=== PATIENT | female | born 1975 | race Caucasian/White ===

== ENCOUNTER → 2018-04-20 | Outpatient (CLI) | payer OTHER ==
--- NOTE | 2018-04-20 16:42 | US ---
EXAMINATION TYPE: US abdomen complete DATE OF EXAM: 04/20/2018 COMPARISON: NONE CLINICAL HISTORY: Z82.49 FAM HX ISCHEMIC HEART DZ,Z13.6 SCREEN FOR CARDIOVASCU. Mother had AAA. EXAM MEASUREMENTS: Liver Length: 14.3 Gallbladder Wall: 0.2m CBD: 0.4m Spleen: 9.1m Right Kidney: 9.5 x 47 x 4.2cm Left Kidney: 10.3 x 5.7 x 5.0cm Pancreas: hyperechoic Liver: fatty liver as is hyperechoic to right renal cortex Gallbladder: wnl Evidence for sonographic Rose's sign: no CBD: wnl Spleen: wnl Right Kidney: mid pole shadowing calcification noted = 0.8 x 0.8 x 0.7cm Left Kidney: mid pole shadowing calcification noted = 0.6 x 1.0 x 0.6cm Upper IVC: wnl Abd Aorta: wnl IMPRESSION: 1. Shadowing nonobstructing renal stones present bilaterally. 2. Mild fatty infiltration of the liver.
== END ==
LOC: RADUSWWP 08:40
PROVIDERS: ATTEND Family Medicine
DX: N20.0 Calculus of kidney (principal); K76.0 Fatty (change of) liver, not elsewhere classified; Z13.6 Encounter for screening for cardiovascular disorders
CPT/HCPCS: 76700

== ENCOUNTER → 2018-04-30 | Outpatient (CLI) | payer OTHER ==
--- NOTE | 2018-05-01 12:11 | ECHOF ---
Referral Reason:I10 essential hyptertension; z82.49 MEASUREMENTS -------- HEIGHT: 152.4 cm WEIGHT: 90.7 kg BP: RVIDd: 3.4 cm (< 3.3) IVSd: 1.1 cm (0.6 - 1.1) LVIDd: 3.5 cm (3.9 - 5.3) LVPWd: 1.1 cm (0.6 - 1.1) IVSs: 1.4 cm LVIDs: 2.6 cm LVPWs: 1.4 cm LAESV Index (A-L): 19.44 ml/m Ao Diam: 2.6 cm (2.0 - 3.7) AV Cusp: 1.6 cm (1.5 - 2.6) LA Diam: 2.8 cm (2.7 - 3.8) MV E Fredy: 1.01 m/s MV DecT: 227 ms MV A Fredy: 0.74 m/s MV E/A Ratio: 1.36 RAP: 5.00 mmHg RVSP: 31.07 mmHg FINDINGS -------- Sinus rhythm. This was a technically adequate study. The left ventricular size is normal. There is borderline concentric left ventricular hypertrophy. Overall left ventricular systolic function is normal with, an EF between 55 - 60 %. The right ventricle is normal in size and function. Normal LA size by volume 22+/-6 ml/m2. The right atrium is normal in size. The aortic valve is trileaflet, and appears structurally normal. No aortic stenosis or regurgitation. The mitral valve leaflets are mildly thickened. There is trace to mild mitral regurgitation. Mild tricuspid regurgitation present. Right ventricular systolic pressure is normal at < 35 mmHg. There is no evidence of pulmonary hypertension. Trace/mild (physiologic) pulmonic regurgitation. The aortic root size is normal. Normal inferior vena cava with normal inspiratory collapse consistent with estimated right atrial pre ssure of 5 mmHg. There is no pericardial effusion. CONCLUSIONS -------- 1. Sinus rhythm. 2. This was a technically adequate study. 3. The left ventricular size is normal. 4. There is borderline concentric left ventricular hypertrophy. 5. Overall left ventricular systolic function is normal with, an EF between 55 - 60 %. 6. Normal LA size by volume 22+/-6 ml/m2. 7. The aortic valve is trileaflet, and appears structurally normal. No aortic stenosis or regurgitati on. 8. The mitral valve leaflets are mildly thickened. 9. There is trace to mild mitral regurgitation. 10. Mild tricuspid regurgitation present. 11. Right ventricular systolic pressure is normal at < 35 mmHg. 12. There is no evidence of pulmonary hypertension. 13. Trace/mild (physiologic) pulmonic regurgitation. 14. The aortic root size is normal. 15. There is no pericardial effusion. MACHINE SAND MIXER: Eduar Mahmood RDCS
== END | disposition home or self-care (01) ==
LOC: RADECHMAIN 15:00
PROVIDERS: ATTEND Family Medicine
DX: I08.1 Rheumatic disorders of both mitral and tricuspid valves (principal); I11.9 Hypertensive heart disease without heart failure; Z82.49 Family history of ischemic heart disease and other diseases of the circulatory system
CPT/HCPCS: 93306

== ENCOUNTER → 2018-05-03 | Outpatient (CLI) | payer OTHER ==
--- NOTE | 2018-05-03 23:41 | CONS ---
CONSULTATION DATE OF SERVICE: 05/03/2018 42-year-old lady has been evaluated in [facility] for possible obstructive sleep apnea-hypopnea syndrome. HISTORY OF PRESENT ILLNESS/SLEEP-WAKE EVALUATION: Patient referred her symptoms for about 1 year. SLEEP SCHEDULE: Her sleep schedule on working days from around 10:30 to 11:00 p.m. until 630 to 7:15 am and on weekends until around 8:00 a.m. FALLING ASLEEP: Sometimes she has problem with falling asleep for more than 30 minutes, but usually not more than 1 hour. She has TV set in bedroom. DURING SLEEP: Sleeps on the side position with her with occasionally very loud snoring. The patient remembers awakening from sleep with choking and gasping for air. She wakes up from sleep up to 5 times with nocturia. DURING THE DAY/SLEEP WAKE EVALUATION: The patient feels sleepy during the day. Klemme Sleepiness Scale significantly increased to 12. Usually she does not have time to take naps. No history of hypnagogic hallucinations, sleep paralysis or cataplexy. PAST MEDICAL HISTORY: Positive for hypertension, acid reflux, headaches, asthma. PAST SURGICAL HISTORY: Tonsillectomy. MEDICATIONS: Omeprazole, lisinopril, vitamin D supplement. SOCIAL HISTORY: Negative for smoking. Alcohol consumption occasional. FAMILY HISTORY: Hypertension, hyperlipidemia, stroke, fibromyalgia, asthma, sinus headaches, bronchitis, lung problems, emphysema, headaches, insomnia, acid reflux, diabetes. REVIEW OF SYSTEMS: Multiple awakenings from sleep, sleepiness during the day. PHYSICAL EXAM: lady without distress. BP 152/77, HR 73, HR 16, height 5 feet 3 inches. weight 207.6, body mass index 39.4, temperature 98.0, oxygen saturation room air 99%. Oropharynx practically normal position of the soft palate. Nose: Restriction of nasal breathing bilaterally. ABDOMEN: Obese. Neck 16 inches in circumference. Neck Supple, no JVD. Thyroid is not palpable. LUNGS: Clear to percussion and to auscultation. Good air exchange. No wheezing or rhonchi. HEART S1, S2 regular. No murmurs, gallops, or rubs. ABDOMEN: Obese. Soft and nontender. Bowel sounds are present. No organomegaly appreciated. EXTREMITIES: 1+ bilateral ankle edema. 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 Cranial nerves 2 to 7 intact. There is no fasciculation or atrophy. noted. No focal deficits observed. IMPRESSION: 1. Snoring, episodes of awakening from sleep with gasping and choking, multiple awakenings with nocturia, restriction of nasal breathing, wide neck 16 inches in circumference, excessive sleepiness. Klemme Sleepiness Scale increased to 12. Possible obstructive sleep apnea-hypopnea syndrome. Obstructive sleep apnea- hypopnea syndrome. 2. Obesity, body mass index 39.4. 3. Hypertension. 4. Acid reflux. 5. Status post tonsillectomy. 6. History of asthma. 7. Headaches and status post tonsillectomy. PLAN: 1. Polysomnography for evaluation of patient's breathing during sleep. 2. CPAP/BiPAP titration if sleep study confirms obstructive sleep apnea-hypopnea syndrome. 3. Preferable position during sleep on the side. 4. No driving if patient feels any sleepiness. 5. I will see patient for follow up visit to explain results of testing and following plan. Thank you very much for referring this patient for consultation. Sincerely, Luis Alfredo Yao MD, PhD, FAASM Diplomat of [employer] Building Insulation Supervisor of [facility] MMODL / IJN: [id number] /
== END | disposition home or self-care (01) ==
LOC: SLEEP 16:32
PROVIDERS: ATTEND Internal Medicine
DX: R06.83 Snoring (principal); G47.10 Hypersomnia, unspecified; R35.1 Nocturia; E66.9 Obesity, unspecified; I10 Essential (primary) hypertension; K21.9 Gastro-esophageal reflux disease without esophagitis; R51 Headache; Z68.39 Body mass index [BMI] 39.0-39.9, adult; Z87.09 Personal history of other diseases of the respiratory system; Z90.09 Acquired absence of other part of head and neck; Z79.899 Other long term (current) drug therapy
CPT/HCPCS: 99211

== ENCOUNTER → 2018-08-01 | Outpatient (CLI) | payer OTHER ==
[2018-08-01 17:37] LABS: Basophils # (A) 0.1 k/uL (0-0.2); Basophils % (A) 1 %; Eosinophils # (A) 0.3 k/uL (0-0.7); Eosinophils % (A) 4 %; HCT 37.5 % (34.0-46.0); HGB 12.5 gm/dL (11.4-16.0); Lymphocytes # (A) 2.8 k/uL (1.0-4.8); Lymphocytes % (A) 32 %; MCH 28.3 pg (25.0-35.0); MCHC 33.3 g/dL (31.0-37.0); MCV 84.9 fL (80.0-100.0); Mean Platelet Volume 7.5; Monocytes # (A) 0.4 k/uL (0-1.0); Monocytes % (A) 4 %; Neutrophils % (A) 57 %; Platelet Count 306 k/uL (150-450); RBC 4.42 m/uL (3.80-5.40); RDW 13.5 % (11.5-15.5); WBC 8.8 k/uL (3.8-10.6)
== END | disposition home or self-care (01) ==
LOC: LABPAT 16:47
PROVIDERS: ATTEND Obstetrics & Gynecology
DX: Z01.818 Encounter for other preprocedural examination (principal); I10 Essential (primary) hypertension; N94.6 Dysmenorrhea, unspecified; N92.0 Excessive and frequent menstruation with regular cycle; Z01.812 Encounter for preprocedural laboratory examination
CPT/HCPCS: 36415; 85025; 93005

== ENCOUNTER 2018-08-07 07:04 | Day surgery (SDC) | payer OTHER ==
[2018-08-03 15:31] VITALS: BMI 38.7
--- NOTE | 2018-08-06 15:08 | HP ---
HISTORY AND PHYSICAL Surgery is tomorrow, August 07, 2018 at [facility]. This is a 43-year-old white female, 3, para 0-3-0-3, who presents with very heavy menses, painful menses with the passage of golf ball size clots. She is using [id number] nonsteroidal pain medication for some relief. After consultation, she is electing to proceed with hysteroscopy, and NovaSure endometrial ablation. Office endometrial sampling has been performed and was within normal limits. Uterus sounds to a depth of 10 cm, please see below. REVIEW OF SYMPTOMS: Otherwise negative. PAST MEDICAL HISTORY: Significant for asthma, HPV, hypertension, hypothyroidism, pituitary tumor, prediabetes, and vitamins D and B12 deficiencies. PAST SURGICAL HISTORY: Tonsillectomy, cryotherapy of the cervix in 1995. CURRENT MEDICATIONS: 1. Lisinopril 10 mg daily. 2. Nature Thyroid 32.5 mg 2 tabs in the morning and 1 in the afternoon. 3. Prilosec 10 mg as needed. ALLERGIES: None known. FAMILY HISTORY: Significant for hypertension and stroke, oral cancer, aneurysm, fibromyalgia, bladder cancer, GERD, COPD, and chronic regional pain syndrome. PAST OBSTETRIC HISTORY: Significant for normal spontaneous vaginal deliveries x3, all , 4 to 7 weeks early. SOCIAL HISTORY: Patient currently never tobacco social alcohol daily. PHYSICAL EXAM: This is a pleasant white female, 5 foot 0.25 inch, 205 pounds, BMI 40, blood pressure 120/80. HEENT exam reveals no obvious thyromegaly, no lymphadenopathy. Good dentition. Chest is clear to auscultation in all farley anteriorly and posteriorly. Cardiac exam reveals regular rate and rhythm with no murmur, click, or rub. Breasts are bilaterally symmetric to inspection, no masses or lymph nodes, no nipple deviation or discharge, no unusual tenderness or lesions to palpation. Abdomen is moderately obese, no organosplenomegaly, active bowel sounds. External genitalia is well estrogenized and age-appropriate, cervix is multiparous, uterus is small, anteverted, anteflexed, mobile and nontender, adnexa are negative bilaterally. Rectal exam reveals good sphincter tone, no hemorrhoids or masses. No obvious lymphadenopathy. Skin exam is negative to inspection. IMPRESSION: Dysmenorrhea and menorrhagia, with recent endometrial biopsy sampling within normal limits. Patient requesting hysteroscopy and NovaSure ablation. PLAN: We will proceed with hysteroscopy and NovaSure endometrial ablation at [facility]. The risks, benefits, and alternatives have all been discussed. The risks of surgery, infection, bleeding, dysmenorrhea postoperatively have all been discussed. The pamphlet on this procedure have been given to the patient and reviewed. All questions addressed. MMODL / IJN: [id number] /
[~2018-08-07 07:04] MED LIST: DEXAMETHASONE SOD PHOSPHATE 10 MG/ML 1 ML VIAL IV ONE; HYDROmorphone 0.5 MG/0.5 ML SYRINGE IVP PRN; LIDOCAINE 1% 20 ML VIAL (10MG/ML) FOR IV START INTRADERMA PRN; MIDAZOLAM (PF) 2 MG/2 ML VIAL IV PRN; ONDANSETRON 4 MG/2 ML VIAL IVP ONE; Pre Op ABX Message 1 EACH MISC MISCELLANE ONE; SCOPOLAMINE 1.5MG/72HR PATCH TRANSDERM ONE
[2018-08-07 07:44] VITALS: RESP 16
[2018-08-07] MEDS: LACTATED RINGERS 1,000 ML IV SCH ×2 (07:51→08:21)
[2018-08-07] MEDS ORDERED: fentaNYL (PF) 50 MCG/ML 2 ML AMP ONE (08:22)
[2018-08-07] MEDS ORDERED: PROPOFOL 10 MG/ML 20 ML VIAL IV ONE (08:22)
[2018-08-07] MEDS ORDERED: KETOROLAC 30 MG/ML 1 ML VIAL ONE (08:22)
[2018-08-07] MEDS ORDERED: LIDOCAINE 1% INJ 10MG/ML (20 ML MDV) ONE (08:22)
[2018-08-07] MEDS ORDERED: SUCCINYLCHOLINE CHLORIDE 100 MG/5 ML SYR IV ONE (08:22)
[2018-08-07] MEDS ORDERED: MIDAZOLAM 2 MG/2 ML VIAL ONE (08:22)
--- NOTE | 2018-08-07 08:47 | P.OP ---
Date of Procedure: 08/07/18 Preoperative Diagnosis: Menorrhagia, dysmenorrhea Postoperative Diagnosis: Same, normal-appearing endometrial cavity Procedure(s) Performed: Hysteroscopy, NovaSure endometrial ablation Anesthesia: ELENAA Surgeon: Jaz Trujillo Estimated Blood Loss (ml): 10 IV fluids (ml): 500 Urine output (ml): 100 Pathology: none sent Condition: stable Disposition: PACU Operative Findings: Essentially normal-appearing endometrial cavity Description of Procedure: Patient is brought to the operating suite and a general anesthetic is administered without difficulty. Urine hCG is negative. The appropriate timeout is performed to assure proper patient and procedural identification. The cervix, vagina, perineal bodies are all prepped and draped in the usual sterile fashion, the patient in dorsal lithotomy position. The bladder is drained for approximately 100 mL of clear yellow urine. Examination under anesthesia reveals a small anteverted anteflex uterus, negative adnexa bilaterally. Weighted speculum was placed into the vagina. The anterior lip of the cervix is grasped with a double-tooth tenaculum. Uterus sounds to a depth of 10.5 cm in the anteverted position. The cervix is gently and systematically dilated using Hanks dilators. Hysteroscope was placed and the cavity is distended with sterile saline. Inspection of the cavity reveals a fair amount of proliferative -type appearing tissue, no obvious polyps fibroids or defects. Hysteroscope was removed. NovaSure wand is then placed and seated properly. The uterine length of 6.5 cm, width of 4.5 cm is calibrated onto the machine. The machine is enabled. For 33 seconds and a power 161 W the procedure is carried out. When the machine shuts off the wand is reduced and removed. Hysteroscope was then reintroduced and the cavity appears to be uniformly blanched. All sponge needle and enhancement counts are correct at the end of the procedure. Toradol is given prior to leaving the operative suite. Patient is brought back to recovery room in very good condition with stable vital signs including blood pressure 118/69, pulse 70, 98% O2 saturation. Patient will follow-up with me in the office in 2 weeks.
[2018-08-07 09:01] VITALS: TEMP 99.2
[2018-08-07 10:29] VITALS: BP 136/89; PULSE 89
== END 2018-08-07 10:47 | disposition home or self-care (01) ==
LOC: OR 07:04
PROVIDERS: ATTEND Obstetrics & Gynecology
DX: N94.6 Dysmenorrhea, unspecified (principal); N92.0 Excessive and frequent menstruation with regular cycle; Z80.52 Family history of malignant neoplasm of bladder; Z80.8 Family history of malignant neoplasm of other organs or systems; J45.909 Unspecified asthma, uncomplicated; K21.9 Gastro-esophageal reflux disease without esophagitis; I10 Essential (primary) hypertension; E03.9 Hypothyroidism, unspecified; R73.03 Prediabetes; E55.9 Vitamin D deficiency, unspecified; E53.8 Deficiency of other specified B group vitamins; Z79.890 Hormone replacement therapy; Z79.899 Other long term (current) drug therapy
CPT/HCPCS: 81025; 58563; J2250; J1100; J2405; J2001; J3010; J1885; J0330; J2704

== ENCOUNTER → 2019-08-05 | Outpatient (CLI) | payer OTHER ==
--- NOTE | 2019-08-05 08:31 | MM ---
Reason for exam: screening (asymptomatic). Baseline mammogram. History: Took hormonal contraceptives for 7 years beginning at age 17. Physical Findings: Nurse did not find any significant physical abnormalities on exam. MG Screening Mammo w CAD Bilateral CC and MLO view(s) were taken. The breast tissue is heterogeneously dense. This may lower the sensitivity of mammography. No suspicious abnormality. Left intramammary lymph node noted. These results were verbally communicated with the patient and result sheet given to the patient on 08/05/19. ASSESSMENT: Benign, BI-RAD 2 RECOMMENDATION: Routine screening mammogram of both breasts in 1 year.
== END | disposition home or self-care (01) ==
LOC: RADMAMWWP 06:52
PROVIDERS: ATTEND Family Medicine
DX: Z12.31 Encounter for screening mammogram for malignant neoplasm of breast (principal)
CPT/HCPCS: 77067

== ENCOUNTER 2022-05-17 18:19 | Emergency (ER) | payer BC, OTHER ==
[2022-05-17 19:12] VITALS: BP 165/87; PULSE 82; RESP 20; TEMP 98
--- NOTE | 2022-05-17 19:59 | XR ---
EXAMINATION TYPE: XR chest 2V DATE OF EXAM: 05/17/2022 COMPARISON: NONE HISTORY: Bronchitis. Cough TECHNIQUE: FINDINGS: Heart and mediastinum are normal. Lungs are clear. Diaphragm is normal. Bony thorax appears normal. IMPRESSION: Normal chest
[2022-05-17] MEDS ORDERED: methylPREDNISolone SOD SUCCI 125 MG/2 ML VIAL IM ONE (20:14)
--- NOTE | 2022-05-17 20:17 | ED ---
URI HPI - General Chief Complaint: Upper Respiratory Infection Stated Complaint: cough, congestion Time Seen by Provider: 05/17/22 19:21 Source: patient Mode of arrival: ambulatory Limitations: no limitations - History of Present Illness Initial Comments: Patient is a 46-year-old female presenting with chief complaint of cough. Patient states that she has had a cough for the last 5 weeks. Patient has been treated with steroids, azithromycin, doxycycline. Patient states that at times cough has slightly improved, however it tends to return within a few days. She states that it is productive. She states that it is keeping her up at night. No fever or chills. No nausea or vomiting. No abdominal pain, chest pain, difficulty breathing. No sore throat , palpitations, weakness. - Related Data Home Medications Medication Instructions Recorded Confirmed Ergocalciferol (Vitamin D2) 50,000 unit PO IRIZARRY 08/03/18 08/07/18 [Vitamin D2] Omeprazole [PriLOSEC] 20 mg PO DAILY 08/03/18 08/07/18 lisinopriL [Zestril] 10 mg PO DAILY 08/03/18 08/07/18 Previous Rx's Medication Instructions Recorded Albuterol Sulfate [Albuterol 2 puff PO Q6H PRN #8.5 gm 05/17/22 Sulfate Hfa] Amoxic-Pot Clav 875-125Mg 1 tab PO Q12HR 7 Days #14 tab 05/17/22 [Augmentin 875-125] methylPREDNISolone Dose Pack 4 mg PO DIRECTED #1 packet 05/17/22 [Medrol Dose Pack] Allergies Allergy/AdvReac Type Severity Reaction Status Date / Time No Known Allergies Allergy Verified 05/17/22 19:12 Review of Systems ROS Statement: Those systems with pertinent positive or pertinent negative responses have been documented in the HPI. ROS Other: All systems not noted in ROS Statement are negative. Past Medical History Past Medical History: Asthma History of Any Multi-Drug Resistant Organisms: None Reported Past Surgical History: Tonsillectomy, Uterine Ablation Past Psychological History: No Psychological Hx Reported Smoking Status: Never smoker Past Alcohol Use History: Occasional Past Drug Use History: None Reported General Exam Limitations: no limitations General appearance: alert, in no apparent distress Head exam: Present: atraumatic, normocephalic, normal inspection Eye exam: Present: normal appearance, PERRL, EOMI. Absent: scleral icterus, conjunctival injection, periorbital swelling ENT exam: Present: normal exam, normal oropharynx, mucous membranes moist Neck exam: Present: normal inspection, full ROM Respiratory exam: Present: wheezes. Absent: respiratory distress, rales, rhonchi, stridor Cardiovascular Exam: Present: regular rate, normal rhythm, normal heart sounds. Absent: systolic murmur, diastolic murmur, rubs, gallop, clicks Neurological exam: Present: alert, oriented X3, CN II-XII intact Psychiatric exam: Present: normal affect, normal mood Skin exam: Present: warm, dry, intact, normal color. Absent: rash Course Vital Signs 05/17/22 19:09 Temperature 98 F Pulse Rate 82 Respiratory 20 Rate Blood Pressure 165/87 O2 Sat by Pulse 97 Oximetry Medical Decision Making - Medical Decision Making Patient is a 46-year-old female presenting with chief complaint of cough been ongoing for the last 5 weeks. Admits to congestion. Patient states that is pr oductive in nature. No chest pain or difficulty breathing. On examination there are mild diffuse wheezes heard on auscultation. Patient tested positive for Covid, however patient has had the same symptoms for the last 5 weeks and cannot be sure when she contracted Covid. Chest x-ray is negative for any acute process. Patient will be treated with Solu-Medrol shot here in the ER, she is prescribed albuterol inhaler, Medrol Dosepak, and Augmentin, as it seems her cough is being provoked by nasal drainage, could be due to sinusitis.. Follow-up with PCP. Report back to ER with any new or worsening symptoms. Discussed return parameters and answered all questions. Patient conveyed verbal understanding and agreed to the plan. I discussed this case in detail with my attending Dr. Escobedo - Lab Data Lab Results 05/17/22 05/17/22 Range/Units 19:18 19:18 Coronavirus (PCR) Detected A (Not Detectd) Influenza Type A RNA Not Detected (Not Detectd) Influenza Type B (PCR) Not Detected (Not Detectd) Disposition Clinical Impression: Upper respiratory tract infection, COVID Disposition: HOME SELF-CARE Condition: Good Instructions (If sedation given, give patient instructions): Upper Respiratory Infection (ED), COVID-19 (Coronavirus Disease 2019) (ED) Additional Instructions: Follow-up with PCP. Report back to ER with any new or worsening symptoms. Take medication as prescribed. Wear mask at all times until symptoms resolve. Prescriptions: Albuterol Sulfate [Albuterol Sulfate Hfa] 2 puff PO Q6H PRN #8.5 gm PRN Reason: Cough Amoxic-Pot Clav 875-125Mg [Augmentin 875-125] 1 tab PO Q12HR 7 Days #14 tab methylPREDNISolone Dose Pack [Medrol Dose Pack] 4 mg PO DIRECTED #1 packet Is patient prescribed a controlled substance at d/c from ED?: No Referrals: Shelley Guzman III, MD [Primary Care Provider] - 1-2 days Time of Disposition: 20:16
== END 2022-05-17 21:19 | disposition home or self-care (01) ==
LOC: EC 18:19
DX: U07.1 COVID-19 (principal); J45.909 Unspecified asthma, uncomplicated; Z79.51 Long term (current) use of inhaled steroids; Z79.899 Other long term (current) drug therapy
CPT/HCPCS: 87502; 87635; 71046; 99283; 96372; J2930

== ENCOUNTER 2022-05-25 04:49 | Observation (INO) | payer BC ==
[2022-05-25] MEDS ORDERED: SODIUM CHLORIDE 0.9% 1,000 ML IV STA (05:17)
[2022-05-25] MEDS ORDERED: ONDANSETRON 4 MG/2 ML VIAL IVP STA (05:17)
[2022-05-25] MEDS ORDERED: PANTOPRAZOLE 40 MG/10 ML VIAL IVP STA (05:17)
[2022-05-25] MEDS ORDERED: KETOROLAC 15 MG/ML 1 ML VIAL IVP STA (05:26)
--- NOTE | 2022-05-25 05:37 | ED ---
General Adult HPI <Kwame Camara - Last Filed: 05/25/22 08:26> - General Source: patient Mode of arrival: wheelchair Limitations: no limitations <Bianca Crowley - Last Filed: 05/26/22 23:33> - General Chief complaint: Abdominal Pain Stated complaint: Right side pain, chest pain Time Seen by Provider: 05/25/22 05:00 - History of Present Illness Initial comments: 46 year old female past medical history of asthma presents to the emergency department with right upper quadrant abdominal pain. States that she ate chicken Parmesan for dinner around 6 PM. She then began having intense right upper quadrant abdominal pain approximately 2 hours after ingestion. States that the worst pain she is ever felt, 10 out of 10. She attempted to take a shower and had an episode of vomiting. Denies dysuria, hematuria or difficulty voiding. No abnormal vaginal bleeding or discharge. No concern for . No diarrhea, constipation, black or bloody stools. No fevers. She did eat the same food that her ate and he is not sick. She admits that the pain radiates up to her shoulders. No shortness of breath. No other alleviating, precipitating or modifying factors (Bianca Crowley) - Related Data Home Medications Medication Instructions Recorded Confirmed L.acidoph,Paracasei, B.lactis 1 cap PO DAILY 05/25/22 05/25/22 [Probiotic] Vitamin D3(Unknown) 1 tab PO DAILY 05/25/22 05/25/22 Zinc Gluconate [Zinc] 50 mg PO DAILY 05/25/22 05/25/22 Allergies Allergy/AdvReac Type Severity Reaction Status Date / Time No Known Allergies Allergy Verified 05/25/22 08:10 Review of Systems ROS Other: All systems not noted in ROS Statement are negative. <Kwame Camara - Last Filed: 05/25/22 08:26> ROS Other: All systems not noted in ROS Statement are negative. <Bianca Crowley - Last Filed: 05/26/22 23:33> ROS Statement: Those systems with pertinent positive or pertinent negative responses have been documented in the HPI. Past Medical History Past Medical History: Asthma Additional Past Medical History / Comment(s): COVID+ 2021 History of Any Multi-Drug Resistant Organisms: None Reported Past Surgical History: Tonsillectomy, Uterine Ablation Past Psychological History: No Psychological Hx Reported Smoking Status: Never smoker Past Alcohol Use History: Occasional Past Drug Use History: None Reported <Bianca Crowley - Last Filed: 05/26/22 23:33> General Exam Limitations: no limitations General appearance: alert, in no apparent distress Head exam: Present: atraumatic, normocephalic, normal inspection Eye exam: Present: normal appearance, PERRL, EOMI. Absent: scleral icterus, conjunctival injection, periorbital swelling ENT exam: Present: normal exam, mucous membranes moist Neck exam: Present: normal inspection. Absent: tenderness, meningismus, lym phadenopathy Respiratory exam: Present: normal lung sounds bilaterally. Absent: respiratory distress, wheezes, rales, rhonchi, stridor Cardiovascular Exam: Present: normal rhythm, tachycardia, normal heart sounds. Absent: systolic murmur, diastolic murmur, rubs, gallop, clicks GI/Abdominal exam: Present: soft, tenderness (Gastric), normal bowel sounds. Absent: distended, guarding, rebound, rigid Extremities exam: Present: normal inspection, full ROM, normal capillary refill. Absent: tenderness, pedal edema, joint swelling, calf tenderness Back exam: Present: normal inspection Neurological exam: Present: alert, oriented X3, CN II-XII intact Psychiatric exam: Present: normal affect, normal mood Skin exam: Present: warm, dry, intact, normal color. Absent: rash <Bianca Crowley Dunia - Last Filed: 05/26/22 23:33> Course Vital Signs 05/25/22 05/25/22 05/25/22 04:50 05:01 08:36 Temperature 98.8 F 97.7 F Pulse Rate 121 H 105 H 84 Respiratory 20 20 13 Rate Blood Pressure 154/91 148/114 149/91 O2 Sat by Pulse 98 99 97 Oximetry EKG Findings - EKG Comments: EKG Findings:: EKG demonstrates sinus tachycardia with a rate of 114. NV inte rval 149. QRS 75. QTC 398. No acute ST segment elevations or depressions <Bianca Crowley Dunia - Last Filed: 05/26/22 23:33> Medical Decision Making - Lab Data Result diagrams: 05/25/22 05:33 05/25/22 05:33 <Kwame Camara - Last Filed: 05/25/22 08:26> - Lab Data Result diagrams: 05/26/22 05:07 05/26/22 05:07 <Bianca Crowley - Last Filed: 05/26/22 23:33> - Medical Decision Making Patient was signed out to me pending results of gallbladder ultrasound. Initially presented and there is findings concerning for hepatobiliary pathology for his symptoms. Laboratory studies did suggest possible gallbladder obstruction or choledocholithiasis his total bilirubin is slightly elevated to 1.7, she is elevated LFTs, and alk phos is elevated. She is continued to have abdominal pain. CT imaging shows no acute abdominal process. Gallbladder ultrasound was completed and showed no acute process. She does have renal calculi in bilateral kidneys but this does not appear to be what is causing her pain. Ultrasound was completed and revealed no acute signs of cholecystitis. On reevaluation, patient still having the pain. I did discuss with her the results of her workup. I believe it is best to have her admitted to the hospital to be evaluated by GI. She was in agreement this plan. GI services was consulted. I spoke with the observation admitting team, Dr. Holly who accepted the patient. Patient was admitted in stable condition. (Kwame Camara) Upon arrival patient is placed into room 4. Thorough history and physical exam is performed. IV access is established and laboratory studies are conducted. CAT scan is performed. Laboratory studies are reviewed and there is marked elevation in the patient's liver enzymes. CT negative for any acute process. Gallbladder ultrasound ordered at this time. Patient will be signed out to Dr. Camara (Bianca Crowley) - Lab Data Lab Results 05/25/22 05/25/22 05/25/22 Range/Units 05:33 05:33 05:33 WBC 16.0 H (3.8-10.6) k/uL RBC 4.96 (3.80-5.40) m/uL Hgb 15.0 (11.4-16.0) gm/dL Hct 42.9 (34.0-46.0) % MCV 86.5 (80.0-100.0) fL MCH 30.3 (25.0-35.0) pg MCHC 35.0 (31.0-37.0) g/dL RDW 13.0 (11.5-15.5) % Plt Count 304 (150-450) k/uL MPV 9.5 Neutrophils % 73 % Lymphocytes % 19 % Monocytes % 6 % Eosinophils % 1 % Basophils % 1 % Neutrophils # 11.6 H (1.3-7.7) k/uL Lymphocytes # 3.0 (1.0-4.8) k/uL Monocytes # 1.0 (0-1.0) k/uL Eosinophils # 0.2 (0-0.7) k/uL Basophils # 0.1 (0-0.2) k/uL Sodium 136 L (137-145) mmol/L Potassium 4.1 (3.5-5.1) mmol/L Chloride 102 (98-107) mmol/L Carbon Dioxide 24 (22-30) mmol/L Anion Gap 10 mmol/L BUN 20 H (7-17) mg/dL Creatinine 0.87 (0.52-1.04) mg/dL Est GFR (CKD-EPI)AfAm >90 (>60 ml/min/1.73 sqM) Est GFR (CKD-EPI)NonAf 80 (>60 ml/min/1.73 sqM) Glucose 159 H (74-99) mg/dL Plasma Lactic Acid Valerio (0.7-2.0) mmol/L Calcium 9.0 (8.4-10.2) mg/dL Total Bilirubin 1.7 H (0.2-1.3) mg/dL AST 503 H (14-36) U/L ALT 365 H (4-34) U/L Alkaline Phosphatase 151 H (38-126) U/L Troponin I 0.013 (0.000-0.034) ng/mL Total Protein 6.6 (6.3-8.2) g/dL Albumin 4.2 (3.5-5.0) g/dL Lipase 68 (23-300) U/L Urine Color Urine Appearance (Clear) Urine pH (5.0-8.0) Ur Specific Davis (1.001-1.035) Urine Protein (Negative) Urine Glucose (UA) (Negative) Urine Ketones (Negative) Urine Blood (Negative) Urine Nitrite (Negative) Urine Bilirubin (Negative) Urine Urobilinogen (<2.0) mg/dL Ur Leukocyte Esterase (Negative) Urine RBC (0-5) /hpf Urine WBC (0-5) /hpf Ur Squamous Epith Cells (0-4) /hpf Amorphous Sediment (None) /hpf Urine Bacteria (None) /hpf Urine Mucus (None) /hpf 05/25/22 05/25/22 Range/Units 05:44 06:00 WBC (3.8-10.6) k/uL RBC (3.80-5.40) m/uL Hgb (11.4-16.0) gm/dL Hct (34.0-46.0) % MCV (80.0-100.0) fL MCH (25.0-35.0) pg MCHC (31.0-37.0) g/dL RDW (11.5-15.5) % Plt Count (150-450) k/uL MPV Neutrophils % % Lymphocytes % % Monocytes % % Eosinophils % % Basophils % % Neutrophils # (1.3-7.7) k/uL Lymphocytes # (1.0-4.8) k/uL Monocytes # (0-1.0) k/uL Eosinophils # (0-0.7) k/uL Basophils # (0-0.2) k/uL Sodium (137-145) mmol/L Potassium (3.5-5.1) mmol/L Chloride (98-107) mmol/L Carbon Dioxide (22-30) mmol/L Anion Gap mmol/L BUN (7-17) mg/dL Creatinine (0.52-1.04) mg/dL Est GFR (CKD-EPI)AfAm (>60 ml/min/1.73 sqM) Est GFR (CKD-EPI)NonAf (>60 ml/min/1.73 sqM) Glucose (74-99) mg/dL Plasma Lactic Acid Valerio 1.4 (0.7-2.0) mmol/L Calcium (8.4-10.2) mg/dL Total Bilirubin (0.2-1.3) mg/dL AST (14-36) U/L ALT (4-34) U/L Alkaline Phosphatase (38-126) U/L Troponin I (0.000-0.034) ng/mL Total Protein (6.3-8.2) g/dL Albumin (3.5-5.0) g/dL Lipase (23-300) U/L Urine Color Yellow Urine Appearance Cloudy H (Clear) Urine pH 7.5 (5.0-8.0) Ur Specific Davis 1.031 (1.001-1.035) Urine Protein Negative (Negative) Urine Glucose (UA) Negative (Negative) Urine Ketones Negative (Negative) Urine Blood Trace H (Negative) Urine Nitrite Negative (Negative) Urine Bilirubin Negative (Negative) Urine Urobilinogen <2.0 (<2.0) mg/dL Ur Leukocyte Esterase Negative (Negative) Urine RBC 19 H (0-5) /hpf Urine WBC 2 (0-5) /hpf Ur Squamous Epith Cells 1 (0-4) /hpf Amorphous Sediment Occasional H (None) /hpf Urine Bacteria Rare H (None) /hpf Urine Mucus Occasional H (None) /hpf Disposition Time of Disposition: 08:15 <Kwame Camara - Last Filed: 05/25/22 08:26> <Bianca Crowley - Last Filed: 05/26/22 23:33> Clinical Impression: Abdominal pain Narrative: concern for choledocholithiasis (Kwame Camara) Disposition: ADMITTED IP TO THIS HOSP Condition: Stable
[2022-05-25 05:41] LABS: Basophils # (A) 0.1 k/uL (0-0.2); Basophils % (A) 1 %; Eosinophils # (A) 0.2 k/uL (0-0.7); Eosinophils % (A) 1 %; HCT 42.9 % (34.0-46.0); Lymphocytes % (A) 19 %; MCH 30.3 pg (25.0-35.0); MCV 86.5 fL (80.0-100.0); Mean Platelet Volume 9.5; Monocytes % (A) 6 %; Neutrophils # (A) 11.6 k/uL (1.3-7.7); Neutrophils % (A) 73 %; Platelet Count 304 k/uL (150-450); RBC 4.96 m/uL (3.80-5.40)
[2022-05-25 05:56] LABS: ALT 365 U/L (4-34); African American GFR (CKD) >90 (>60 ml/min/1.73 sqM); Albumin 4.2 g/dL (3.5-5.0); Anion Gap 10 mmol/L; Blood Urea Nitrogen 20 mg/dL (7-17); Carbon Dioxide 24 mmol/L (22-30); Chloride 102 mmol/L (98-107); Glucose 159 mg/dL (74-99); Lipase 68 U/L (23-300); Non-African American GFR(CKD) 80 (>60 ml/min/1.73 sqM); Sodium 136 mmol/L (137-145); Total Bilirubin 1.7 mg/dL (0.2-1.3); Total Protein 6.6 g/dL (6.3-8.2)
[2022-05-25 06:00] LABS: AST 503 U/L (14-36); Alkaline Phosphatase 151 U/L (38-126); Potassium 4.1 mmol/L (3.5-5.1)
--- NOTE | 2022-05-25 06:22 | CT ---
EXAMINATION TYPE: CT abdomen pelvis w con DATE OF EXAM: 05/25/2022 COMPARISON: None HISTORY: RUQ pain CT DLP: 1120.6 mGycm Automated exposure control for dose reduction was used. CONTRAST: Performed with IV Contrast, patient injected with 100ml mL of Isovue 300. Images obtained from the diaphragm to the floor the pelvis with the IV contrast. The lung bases are clear. No pleural effusion. Heart size is normal. No pericardial effusion. Liver spleen stomach and pancreas gallbladder appear intact. The bile ducts are not dilated. There is no adrenal mass. Kidneys have normal size. No hydronephrosis. There are bilateral renal calc steven up to 7 mm. No retroperitoneal adenopathy. Appendix is posterior and appears normal. The ureters are not dilated. Bladder distends smoothly. No inguinal hernia. No free fluid in the pelvis. There ar e sigmoid diverticula. No diverticulitis. The lumbar vertebrae have normal alignment. Posterior elements are intact. No compression fracture. T he bony pelvis is intact. Hip joints are intact. There is no mesenteric edema. No ascites or free air. No sign of a bowel obstruction. IMPRESSION: Normal appendix. Nonobstructing renal calculi. No acute abnormality of the abdomen pelvis. Sigmoid diverticulosis.
[2022-05-25 06:30] LABS: Amorphous Sediment,Urine Occasional /hpf; Appearance,Urine Cloudy (Clear); Bacteria,Urine Rare /hpf; Bilirubin,Urine Negative (Negative); Blood,Urine Trace (Negative); Color,Urine Yellow; Glucose,Urine (UA) Negative (Negative); Ketones,Urine Negative (Negative); Leukocyte Esterase,Urine Negative (Negative); Mucus,Urine Occasional /hpf; Nitrite,Urine Negative (Negative); PH, Urine 7.5 (5.0-8.0); Protein,Urine Negative (Negative); RBC,Urine 19 /hpf (0-5); Specific Gravity,Urine 1.031 (1.001-1.035); Squamous Epithelial Cell,Urine 1 /hpf (0-4); Urobilinogen,Urine <2.0 mg/dL (<2.0); WBC,Urine 2 /hpf (0-5)
--- NOTE | 2022-05-25 07:25 | US ---
EXAMINATION TYPE: US gallbladder DATE OF EXAM: 05/25/2022 COMPARISON: CT earlier today CLINICAL HISTORY: abd pain. pain since 1am TECHNIQUE: Multiple sonographic images of the right upper quadrant are obtained. FINDINGS: EXAM MEASUREMENTS: Liver Length: 16.1 cm Gallbladder Wall: 0.2 cm CBD: 0.6 cm Right Kidney: 10.7 x 5.0 x 4.6 cm Pancreas: wnl Liver: wnl Gallbladder: wnl Evidence for sonographic Rose's sign: yes CBD: wnl Right Kidney: 1.0 x 0.8cm mid pole stone IMPRESSION: No gallstones or ultrasound evidence for acute cholecystitis. Nonobstructing mid pole rig ht renal calculus redemonstrated.
[2022-05-25] MEDS ORDERED: MORPHINE SULFATE 4 MG/ML SYRINGE IV PRN (08:22)
[2022-05-25] MEDS ORDERED: KETOROLAC 15 MG/ML 1 ML VIAL IVP PRN (08:22)
[2022-05-25] MEDS ORDERED: NALOXONE 0.4 MG/ML 1 ML VIAL IV PRN ×2 (08:22→13:30)
[2022-05-25] MEDS ORDERED: ONDANSETRON 4 MG/2 ML VIAL IVP PRN (08:22)
--- NOTE | 2022-05-25 10:57 | P.CONS ---
History of Present Illness - Reason for Consult Consult date: 05/25/22 possible choledocholithiasis Requesting physician: Kwame Camara - Chief Complaint RUQ pain - History of Present Illness On is a pleasant 46-year-old white female who presented to the emergency department with complaints of epigastric and right upper quadrant pain. Patient states her pain was a 10 out of 10 awoke her up out of sleep at 1 AM. States last night she had chicken Parmesan for dinner with no problems initially. She states that she woke up pain was severe in the right upper quadrant of her abdomen radiating to the epigastric region and into her back. She states she had associated nausea and vomiting. She denies any previous similar symptoms in the past. Denies any previous history of gallbladder disease. Denies history of any liver disease, underlying elevation of LFTs and no prior history of alcohol abuse. She denies any new medications. She was noted on admission to have elevated LFTs, she had a CT of the abdomen and pelvis reporting normal appendix. Nonobstructing renal calculi. No acute abnormality of the abdomen and pelvis. Sigmoid diverticulosis. She also underwent ultrasound of the gallbladder that showed no gallstones or ultrasound evidence of acute cholecystitis. Nonobstructing mid pole right renal calculus redemonstrated. Gastroenterology was consulted for possible choledocholithiasis. Patient states she still having right upper quadrant and epigastric discomfort however is improved from in the middle of the night. No further nausea and vomiting. She's been afebrile. Denies any fevers or chills. Admitting labs. WBC 16 hemoglobin 15 hematocrit 42 platelet count 304,000 sodium 136 potassium 4.1 BUN 20 creatinine 0.8 total bilirubin 1.7 AST 503 ALT 365 alkaline phosphatase 151 lipase 68 Review of Systems REVIEW OF SYSTEMS: CARDIOPULMONARY: No chest pain or shortness of breath. Gastrointestinal: Epigastric and right upper quadrant pain associated with nausea and vomiting. No hematemesis, coffee-ground emesis. No rectal bleeding, or melena. GENITOURINARY: No dysuria or hematuria. MUSCULOSKELETAL: Reports normal range of motion. SKIN: No rashes. No jaundice. ENDOCRINE: No chills, fevers. No excessive weight gain or loss. No polydipsia or polyuria. PSYCHIATRIC: Unremarkable. NEUROLOGY: No change in mental status. Denies dizziness, headache. ENT: Vision unremarkable. CONSTITUTIONAL: No recent weight loss. No fever, chills, night sweats. Past Medical History Past Medical History: Asthma Additional Past Medical History / Comment(s): COVID+ 2021 History of Any Multi-Drug Resistant Organisms: None Reported Past Surgical History: Tonsillectomy, Uterine Ablation Past Psychological History: No Psychological Hx Reported Smoking Status: Never smoker Past Alcohol Use History: Occasional Past Drug Use History: None Reported - Past Family History Mother Family Medical History: Vascular Disorder Additional Family Medical History / Comment(s): Mother from a aortic aneurysm rupture at the age of 59yrs. Father History Unknown: Yes Medications and Allergies Home Medications Medication Instructions Recorded Confirmed Type L.acidoph,Paracasei, B.lactis 1 cap PO DAILY 05/25/22 05/25/22 History [Probiotic] Vitamin D3(Unknown) 1 tab PO DAILY 05/25/22 05/25/22 History Zinc Gluconate [Zinc] 50 mg PO DAILY 05/25/22 05/25/22 History Allergies Allergy/AdvReac Type Severity Reaction Status Date / Time No Known Allergies Allergy Verified 05/25/22 08:10 Physical Exam Vitals: Vital Signs Temp Pulse Resp BP Pulse Ox 05/25/22 08:36 84 13 149/91 97 05/25/22 05:01 97.7 F 105 H 20 148/114 99 05/25/22 04:50 98.8 F 121 H 20 154/91 98 Intake and Output 05/24/22 05/25/22 05/25/22 22:59 06:59 14:59 Other: Weight 81.647 kg General appearance: The patient is alert, oriented, appears in no acute distress. HET: Head is normocephalic and atraumatic. Conjunctiva pink. Sclera anicteric. Neck: Supple without lymphadenopathy. Trachea midline. Heart: S1 S2. Regular rate and rhythm. Lungs: Clear to auscultation. Abdomen: Soft, epigastric and right upper quadrant tenderness to palpation, nondistended with bowel sounds. No guarding or rigidity. Skin: No rashes. No jaundice. Extremities: Normal skin color and turgor. No pedal edema. Neurological: No focal deficits. Alert and oriented x3. Results CBC & Chem 7: 05/25/22 05:33 05/25/22 05:33 Labs: Abnormal Lab Results - Last 24 Hours (Table) 05/25/22 05/25/22 05/25/22 Range/Units 05:33 05:33 06:00 WBC 16.0 H (3.8-10.6) k/uL Neutrophils # 11.6 H (1.3-7.7) k/uL Sodium 136 L (137-145) mmol/L BUN 20 H (7-17) mg/dL Glucose 159 H (74-99) mg/dL Total Bilirubin 1.7 H (0.2-1.3) mg/dL AST 503 H (14-36) U/L ALT 365 H (4-34) U/L Alkaline Phosphatase 151 H (38-126) U/L Urine Appearance Cloudy H (Clear) Urine Blood Trace H (Negative) Urine RBC 19 H (0-5) /hpf Amorphous Sediment Occasional H (None) /hpf Urine Bacteria Rare H (None) /hpf Urine Mucus Occasional H (None) /hpf Comments: CT of the abdomen and pelvis reporting normal appendix. Nonobstructing renal calculi. No acute abnormality of the abdomen and pelvis. Sigmoid diverticulosis. Ultrasound of the gallbladder that showed no gallstones or ultrasound evidence of acute cholecystitis. Nonobstructing mid pole right renal calculus redemonstrated. Assessment and Plan (1) Right upper quadrant pain Narrative/Plan: 46-year-old female who presented to the emergency department after having severe pain in the right upper quadrant and epigastric region in the middle of the night. Patient presented to the emergency department with findings of elevated LFTs, had a CT of the abdomen and pelvis as well as ultrasound of the gallbladd er with no significant findings to explain symptoms. No prior history of liver disease, no history of alcohol abuse. No prior history of gallbladder disease or any new medications reported. Unclear etiology of elevated LFTs and abdominal pain, possible choledochal lithiasis however again CT abdomen and pelvis as well as ultrasound shows no evidence of CBD dilation, no gallstones, no concerns for cholecystitis. Current Visit: Yes Status: Acute Code(s): R10.11 - RIGHT UPPER QUADRANT PAIN SNOMED Code(s): 770986975 (2) Elevated LFTs Current Visit: Yes Status: Acute Code(s): R79.89 - OTHER SPECIFIED ABNORMAL FINDINGS OF BLOOD CHEMISTRY SNOMED Code(s): 730419268 Plan: 1. Continue symptomatic and supportive care 2. Continue IV fluids 3. Clear liquid diet, nothing by mouth after midnight 4. Antiemetics as needed 5. Protonix 40 mg daily 6. Pain medication as needed 7. Repeat CBC, PT/INR, CMP in the morning 8. Further recommendations forthcoming based on clinical course Thank you for this consultation, we will continue to follow. Dr. Kerwin Jennings I agree with the dictator's note, documented as a scribe by Sally Kirk.
[2022-05-25] MEDS: PIPERACILLIN-TAZOBACTAM 3.375 GM in SODIUM CHLORIDE 0.9% 100 ML IVPB SCH ×2 (11:51→20:50)
[2022-05-25] MEDS: SODIUM CHLORIDE 0.9% 1,000 ML IV SCH (11:52)
--- NOTE | 2022-05-25 13:28 | P.HPIM ---
History of Present Illness H&P Date: 05/25/22 Chief Complaint: abdominal pain 46-year-old white female who presented to the emergency department with complaints of epigastric and right upper quadrant pain. Patient states her pain was a 10 out of 10 awoke her up out of sleep at 1 AM. States last night she had chicken Parmesan for dinner with no problems initially. Pain also radiates to the right chest and right shoulder. She states she had associated nausea and vomiting. She denies any previous similar symptoms in the past, still has her gallbladder. Denies history of any liver disease In the ER her work up revealed, AST 503, ALT 365, Alp 151, Trop negative. WBC 95911, UA with no pyuria but positive for RBCs. She had a CT of the abdomen and pelvis reporting normal appendix. Nonobstructing renal calculi. No acute abnormality of the abdomen and pelvis. Sigmoid diverticulosis. She also underwent ultrasound of the gallbladder that showed no gallstones or ultrasound evidence of acute cholecystitis. Nonobstructing mid pole right renal calculus redemonstrated. Review of Systems Complete review of system performed, pertinent positives per HPI, otherwise negative Past Medical History Past Medical History: Asthma Additional Past Medical History / Comment(s): COVID+ 2021 History of Any Multi-Drug Resistant Organisms: None Reported Past Surgical History: Tonsillectomy, Uterine Ablation Additional Past Surgical History / Comment(s): Lacerations with childbirth with vaginal repair, R foot keloid removed, cyst removed pubis. Past Anesthesia/Blood Transfusion Reactions: No Reported Reaction Past Psychological History: No Psychological Hx Reported Smoking Status: Never smoker Past Alcohol Use History: Occasional Past Drug Use History: None Reported - Past Family History Mother Family Medical History: Vascular Disorder Additional Family Medical History / Comment(s): Mother from a aortic aneurysm rupture at the age of 59yrs. Father History Unknown: Yes Medications and Allergies Home Medications Medication Instructions Recorded Confirmed Type L.acidoph,Paracasei, B.lactis 1 cap PO DAILY 05/25/22 05/25/22 History [Probiotic] Vitamin D3(Unknown) 1 tab PO DAILY 05/25/22 05/25/22 History Zinc Gluconate [Zinc] 50 mg PO DAILY 05/25/22 05/25/22 History Allergies Allergy/AdvReac Type Severity Reaction Status Date / Time No Known Allergies Allergy Verified 05/25/22 08:10 Physical Exam Vitals: Vital Signs Temp Pulse Pulse Resp BP BP Pulse Ox 05/25/22 11:18 80 18 120/79 95 05/25/22 10:50 80 18 114/74 05/25/22 09:36 18 05/25/22 09:13 99.1 F 95 18 138/95 100 05/25/22 08:36 84 13 149/91 97 05/25/22 05:01 97.7 F 105 H 20 148/114 99 05/25/22 04:50 98.8 F 121 H 20 154/91 98 Intake and Output 05/24/22 05/25/22 05/25/22 22:59 06:59 14:59 Other: Weight 81.647 kg 81.647 kg Constitutional: No acute distress, conversant, pleasant Eyes:Anicteric sclerae, moist conjunctiva, no lid-lag, PERRLA, ENMT: Oropharynx clear, no erythema, exudates Neck: Supple, FROM, no masses, or JVD, No carotid bruits, No thyromegaly Lungs: Clear to auscultation, Clear to percussion, Normal respiratory effort, no accessory muscle use Cardiovascular: Heart regular in rate and rhythm, No murmurs, gallops, or rubs, No peripheral edema Abdominal: Soft, tender in the RUQ, no guarding, rebound or rigidity, Normoactive bowel sounds, No hepatomegaly, No splenomegaly, No palpable mass Skin: Normal temperature, tone, texture, turgor, no induration, No subcutaneous nodules, No rash, lesions, No ulcers Extremities: No digital cyanosis, No clubbing, Pedal pulses intact and symmetrical, Radial pulses intact and symmetrical, No calf tenderness Psychiatric: Alert and oriented to person, place and time, appropriate affect, intact judgement Neuro: Muscles Strength 5/5 in all 4 extremities, Sensation to light touch grossly present throughout, Cranial nerves II-XII grossly intact, no focal sensory deficits Results CBC & Chem 7: 05/25/22 05:33 05/25/22 05:33 Labs: Abnormal Lab Results - Last 24 Hours (Table) 05/25/22 05/25/22 05/25/22 Range/Units 05:33 05:33 06:00 WBC 16.0 H (3.8-10.6) k/uL Neutrophils # 11.6 H (1.3-7.7) k/uL Sodium 136 L (137-145) mmol/L BUN 20 H (7-17) mg/dL Glucose 159 H (74-99) mg/dL Total Bilirubin 1.7 H (0.2-1.3) mg/dL AST 503 H (14-36) U/L ALT 365 H (4-34) U/L Alkaline Phosphatase 151 H (38-126) U/L Urine Appearance Cloudy H (Clear) Urine Blood Trace H (Negative) Urine RBC 19 H (0-5) /hpf Amorphous Sediment Occasional H (None) /hpf Urine Bacteria Rare H (None) /hpf Urine Mucus Occasional H (None) /hpf Thrombosis Risk Factor Assmnt - Choose All That Apply Any of the Below Risk Factors Present?: Yes Each Factor Represents 1 point: Age 41-60 years, Obesity (BMI >25) Other Risk Factors: No Other congenital or acquired thrombophilia - If yes, enter type in comment: No Thrombosis Risk Factor Assessment Total Risk Factor Score: 2 Thrombosis Risk Factor Assessment Level: Low Risk Assessment and Plan Plan: Right upper quadrant pain Transaminitis Abdominal CAT scan and ultrasound reviewed Could be secondary to passed stone Monitor LFTs and WBC GI consult Surgery consult History of hypertension Patient does not follow with any physician currently Monitor blood pressure DVT prophylaxis Ambulatory, low risk Admit to observation
--- NOTE | 2022-05-25 14:40 | P.GSCN ---
History of Present Illness Consult date: 05/25/22 History of present illness: CHIEF COMPLAINT: Abdominal pain HISTORY OF PRESENT ILLNESS: This is a 46-year-old female presented with right upper quadrant abdominal pain at 1:00 this morning. Reports that the pain is very severe. She reports the pain 8 out of 10. The pain is in the right upper quadrant radiating to the epigastric area to her back and then up into the shoulder. She's been having nausea and vomiting. She had no relief of her symptoms with Tums or Aleve. She reports that she ate garlic Parmesan chicken for dinner last night. She denies any prior abdominal surgical history. Denies any cardiac history. She had computed tomography scan of the abdomen and pelvis with normal appendix and no acute abnormality. Ultrasound showed no evidence of gallstones. She did have a positive Rose sign. She does have evidence of elevated LFTs. GI services on consult as well. She had recently been on antibiotics for bronchitis. She was diagnosed with covid on 05/17/2022. Patient still has cough. She is on room air. PAST MEDICAL HISTORY: See below PAST SURGICAL HISTORY: See below MEDICATIONS: See below ALLERGIES: See below SOCIAL HISTORY: No illicit drug use. REVIEW OF SYSTEMS: CONSTITUTIONAL: Denies fever or chills. HEENT: Denies blurred vision, vision changes, or eye pain. Denies hemoptysis CARDIOVASCULAR: Denies chest pain or pressure. RESPIRATORY: No shortness of breath. GASTROINTESTINAL: See HPI for pertinent findings HEMATOLOGIC: Denies bleeding disorders. GENITOURINARY: Denies any blood in urine or increased urinary frequency. SKIN: Denies pruitis. Denies rash. PHYSICAL EXAM: VITAL SIGNS: Reviewed GENERAL: Well-developed in no acute distress. HEENT: No sclera icterus. Extraocular movements grossly intact. Moist buccal mucosa. Head is atraumatic, normocephalic. No nasal drainage. ABDOMEN: Soft. Nondistended. Tenderness to palpation of the right upper quadrant and epigastric area NEUROLOGIC: Alert and oriented. Cranial nerves II through XII grossly intact. LABORATORY DATA: WBC is 16 Hgb 15 platelets 304 Sodium is 136 potassium 4.1 creatinine 0.87 Lactic acid 1.4 total bilirubin 1.7 AST 503 ALT 365 alk phos 151 Lipase 68 IMAGING: Computed tomography scan abdomen and pelvis normal appendix. Nonobstructing renal calculi. No acute abnormality of the abdomen and pelvis. Sigmoid diverticulosis. Gallbladder ultrasound no gallstones or ultrasound evidence for acute cholecystitis. Nonobstructing midpole right renal calculus redemonstrated. Positive Rose sign. ASSESSMENT: 1. Right upper quadrant abdominal pain with elevated LFTs and total bilirubin 2. Possible choledocholithiasis 3. Covid positive PLAN: -MRCP will be ordered to rule out choledocholithiasis -Continue antibiotics -Continue clear liquid diet -Continue supportive care -Further recommendations forthcoming per surgeon Thank you for this consultation Physician Flue Dust Laborer note has been reviewed by physician. Signing provider agrees with the documented findings, assessment, and plan of care. Past Medical History Past Medical History: Asthma Additional Past Medical History / Comment(s): COVID+ 2021 History of Any Multi-Drug Resistant Organisms: None Reported Past Surgical History: Tonsillectomy, Uterine Ablation Additional Past Surgical History / Comment(s): Lacerations with childbirth with vaginal repair, R foot keloid removed, cyst removed pubis. Past Anesthesia/Blood Transfusion Reactions: No Reported Reaction Past Psychological History: No Psychological Hx Reported Smoking Status: Never smoker Past Alcohol Use History: Occasional Past Drug Use History: None Reported - Past Family History Mother Family Medical History: Vascular Disorder Additional Family Medical History / Comment(s): Mother from a aortic aneurysm rupture at the age of 59yrs. Father History Unknown: Yes Medications and Allergies Home Medications Medication Instructions Recorded Confirmed Type L.acidoph,Paracasei, B.lactis 1 cap PO DAILY 05/25/22 05/25/22 History [Probiotic] Vitamin D3(Unknown) 1 tab PO DAILY 05/25/22 05/25/22 History Zinc Gluconate [Zinc] 50 mg PO DAILY 05/25/22 05/25/22 History Allergies Allergy/AdvReac Type Severity Reaction Status Date / Time No Known Allergies Allergy Verified 05/25/22 08:10 Surgical - Exam Vital Signs Temp Pulse Resp BP Pulse Ox 98.8 F 121 H 20 154/91 98 05/25/22 04:50 05/25/22 04:50 05/25/22 04:50 05/25/22 04:50 05/25/22 04:50 Results - Labs 05/25/22 05:33 05/25/22 05:33 Abnormal Lab Results - Last 24 Hours (Table) 11/09/1405/25/22 05/25/22 Range/Units 05:33 05:33 06:00 WBC 16.0 H (3.8-10.6) k/uL Neutrophils # 11.6 H (1.3-7.7) k/uL Sodium 136 L (137-145) mmol/L BUN 20 H (7-17) mg/dL Glucose 159 H (74-99) mg/dL Total Bilirubin 1.7 H (0.2-1.3) mg/dL AST 503 H (14-36) U/L ALT 365 H (4-34) U/L Alkaline Phosphatase 151 H (38-126) U/L Urine Appearance Cloudy H (Clear) Urine Blood Trace H (Negative) Urine RBC 19 H (0-5) /hpf Amorphous Sediment Occasional H (None) /hpf Urine Bacteria Rare H (None) /hpf Urine Mucus Occasional H (None) /hpf Diabetes panel 05/25/22 Range/Units 05:33 Sodium 136 L (137-145) mmol/L Potassium 4.1 (3.5-5.1) mmol/L Chloride 102 (98-107) mmol/L Carbon Dioxide 24 (22-30) mmol/L BUN 20 H (7-17) mg/dL Creatinine 0.87 (0.52-1.04) mg/dL Glucose 159 H (74-99) mg/dL Calcium 9.0 (8.4-10.2) mg/dL AST 503 H (14-36) U/L ALT 365 H (4-34) U/L Alkaline Phosphatase 151 H (38-126) U/L Total Protein 6.6 (6.3-8.2) g/dL Albumin 4.2 (3.5-5.0) g/dL Calcium panel 05/25/22 Range/Units 05:33 Calcium 9.0 (8.4-10.2) mg/dL Albumin 4.2 (3.5-5.0) g/dL Pituitary panel 05/25/22 Range/Units 05:33 Sodium 136 L (137-145) mmol/L Potassium 4.1 (3.5-5.1) mmol/L Chloride 102 (98-107) mmol/L Carbon Dioxide 24 (22-30) mmol/L BUN 20 H (7-17) mg/dL Creatinine 0.87 (0.52-1.04) mg/dL Glucose 159 H (74-99) mg/dL Calcium 9.0 (8.4-10.2) mg/dL Adrenal panel 05/25/22 Range/Units 05:33 Sodium 136 L (137-145) mmol/L Potassium 4.1 (3.5-5.1) mmol/L Chloride 102 (98-107) mmol/L Carbon Dioxide 24 (22-30) mmol/L BUN 20 H (7-17) mg/dL Creatinine 0.87 (0.52-1.04) mg/dL Glucose 159 H (74-99) mg/dL Calcium 9.0 (8.4-10.2) mg/dL Total Bilirubin 1.7 H (0.2-1.3) mg/dL AST 503 H (14-36) U/L ALT 365 H (4-34) U/L Alkaline Phosphatase 151 H (38-126) U/L Total Protein 6.6 (6.3-8.2) g/dL Albumin 4.2 (3.5-5.0) g/dL
[2022-05-25] MEDS ORDERED: HEPARIN SODIUM,PORCINE/PF 5,000 UNIT/0.5 ML SYRINGE SQ SCH (16:00)
--- NOTE | 2022-05-25 20:05 | MR ---
MR MRCP INDICATION: Patient age:Female; 46 years old; Reason for study: RUQ abdominal pain with elevated LFTs; COMPARISON: No prior studies available.. TECHNIQUE: Multi planar, T2-weighted imaging with and without fat saturation and chemical shift imag ing was performed of the abdomen. Then, heavily T2 weighted imaging (half-Fourier acquisition single- shot turbo spin-echo) was utilized in order to study the biliary system. Maximum intensity projectio n images were reconstructed from the original data of the biliary tree. No Gadolinium given. FINDINGS: MRCP: The intrahepatic ducts have a normal appearance. The common bile duct at the level of the pancreatic head measures 4 mm in size. The common hepatic duct measures 6 mm in size. The pancreatic duct is normal. The gallbladder appears demonstrates gallbladder neck no signal densities best appreciated on series 801 image 38. Abdomen: The liver, spleen, adrenal glands, and kidneys, have a normal noncontrast appearance. No evidence of steatosis or cirrhosis. There is a 4 mm high T2 signal cyst in the pancreatic body with indication to the main pancreatic antonia t best appreciated on MIP /MRCP imaging. IMPRESSION: 1. No evidence to suggest ductal stricture, choledocholithiasis, or biliary ductal dilatation. 2. Cholelithiasis. 3. Cystic focus with communication to the main pancreatic duct measuring 4 mm in the pancreatic body. 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 Follow-u p MRI/MRCP imaging in one year is recommended to ensure stability.
[2022-05-26] MEDS: SODIUM CHLORIDE 0.9% 1,000 ML IV SCH ×3 (00:37→21:04)
[2022-05-26] MEDS: PIPERACILLIN-TAZOBACTAM 3.375 GM in SODIUM CHLORIDE 0.9% 100 ML IVPB SCH ×3 (05:17→21:04)
[2022-05-26 06:12] LABS: ALT 656 U/L (4-34); AST 338 U/L (14-36); African American GFR (CKD) >90 (>60 ml/min/1.73 sqM); Albumin 3.3 g/dL (3.5-5.0); Albumin/Globulin Ratio 1.6; Alkaline Phosphatase 121 U/L (38-126); Anion Gap 6 mmol/L; Blood Urea Nitrogen 11 mg/dL (7-17); Calcium 8.4 mg/dL (8.4-10.2); Carbon Dioxide 26 mmol/L (22-30); Chloride 106 mmol/L (98-107); Globulin 2.1 g/dL; Glucose 104 mg/dL (74-99); Magnesium 2.2 mg/dL (1.6-2.3); Non-African American GFR(CKD) 85 (>60 ml/min/1.73 sqM); Potassium 4.2 mmol/L (3.5-5.1); Prothrombin Time 10.7 sec (9.0-12.0); Sodium 138 mmol/L (137-145); Total Bilirubin 1.4 mg/dL (0.2-1.3); Total Protein 5.4 g/dL (6.3-8.2)
[2022-05-26 09:11] LABS: Basophils # (A) 0.05 X 10*3/uL (0.00-0.10); Basophils % (A) 0.6 %; Eosinophils # (A) 0.26 X 10*3/uL (0.04-0.35); Eosinophils % (A) 3.1 %; HGB 12.8 g/dL (12.0-15.0); Immature Grans, Automated 1.6 %; Lymphocytes # (A) 2.61 X 10*3/uL (0.90-5.00); Lymphocytes % (A) 31.3 %; MCH 28.9 pg (27.0-32.0); MCV 90.3 fL (80.0-97.0); Mean Platelet Volume 11.8 fL (9.5-12.2); Monocytes # (A) 0.63 X 10*3/uL (0.20-1.00); Monocytes % (A) 7.6 %; NRBC Per 100 WBC 0 /100 WBCS (0.0-0.0); Neutrophils # (A) 4.66 X 10*3/uL (1.80-7.70); Neutrophils % (A) 55.8 %; Platelet Count 243 X 10*3/uL (140-440); RBC 4.43 X 10*6/uL (4.10-5.20); RDW 13.8 % (11.5-14.5); WBC 8.34 X 10*3/uL (4.50-10.00)
[2022-05-26] MEDS: PANTOPRAZOLE 40 MG/10 ML VIAL IVP SCH (09:24)
--- NOTE | 2022-05-26 11:16 | P.PN ---
Subjective Progress Note Date: 05/26/22 Principal diagnosis: Elevated LFTs, right upper quadrant pain On is a pleasant 46-year-old white female who presented to the emergency department with complaints of epigastric and right upper quadrant pain. Patient states her pain was a 10 out of 10 awoke her up out of sleep at 1 AM. States last night she had chicken Parmesan for dinner with no problems initially. She states that she woke up pain was severe in the right upper quadrant of her abdomen radiating to the epigastric region and into her back. She states she had associated nausea and vomiting. She denies any previous similar symptoms in the past. Denies any previous history of gallbladder disease. Denies history of any liver disease, underlying elevation of LFTs and no prior history of alcohol abuse. She denies any new medications. She was noted on admission to have elevated LFTs, she had a CT of the abdomen and pelvis reporting normal appendix. Nonobstructing renal calculi. No acute abnormality of the abdomen and pelvis. Sigmoid diverticulosis. She also underwent ultrasound of the gallbladder that showed no gallstones or ultrasound evidence of acute cholecystitis. Nonobstructing mid pole right renal calculus redemonstrated. Gastroenterology was consulted for possible choledocholithiasis. Patient states she still having right upper quadrant and epigastric discomfort however is impr jewels from in the middle of the night. No further nausea and vomiting. She's been afebrile. Denies any fevers or chills. Admitting labs. WBC 16 hemoglobin 15 hematocrit 42 platelet count 304,000 s odium 136 potassium 4.1 BUN 20 creatinine 0.8 total bilirubin 1.7 AST 503 ALT 365 alkaline phosphatase 151 lipase 68 05/26/2022. Patient is seen and examined today as a follow-up for right upper quadrant pain and elevated LFTs. Yesterday she underwent an MRCP that reported no evidence to suggest ductal stricture, choledocholithiasis or biliary ductal dilation. Cholelithiasis was noted. Cystic focus with communication to the main pancreatic duct measuring 4 mm in the pancreatic body. 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 Follow-up MRI/MRCP imaging in one year is recommended. Patient states abdominal pain has improved significantly. No nausea or vomiting. She is tolerating clear liquid diet. Patient does have cough, no fever. She did come back positive for COVID-19 infection. Gen. surgery is following patient closely. Ap parently patient reported that she was recently in [place] and also on several antibiotics including Z-Uriel, doxycycline and possibly Augmentin for bronchitis/upper respiratory infection. Repeat labs today WBC 8.3 hemoglobin 12.8 platelet count 243,000 INR 1.0 total bilirubin 1.4 AST 338 ALT 656 alkaline phosphatase 121. Patient has been afebrile. Objective - Vital Signs Vital signs: Vital Signs Temp 98.7 F 05/26/22 07:00 Pulse 88 05/26/22 07:00 Resp 16 05/26/22 07:00 BP 111/71 05/26/22 07:00 Pulse Ox 97 05/26/22 07:00 FiO2 Intake & Output 05/25/22 05/26/22 05/26/22 18:59 06:59 18:59 Intake Total 118 Balance 118 Weight 81.647 kg Intake: Oral 118 Other: # Voids 2 1 - Exam General appearance: The patient is alert, oriented, appears in no acute distress. HET: Head is normocephalic and atraumatic. Conjunctiva pink. Sclera anicteric. Neck: Supple without lymphadenopathy. Abdomen: Soft, right upper quadrant tenderness to palpation, however improved from yesterday. Nondistended with bowel sounds. No guarding or rigidity. Extremities: Normal skin color and turgor. No pedal edema Skin: No rashes, no jaundice Neurological: No focal deficits. Alert and oriented. - Labs CBC & Chem 7: 05/26/22 05:07 05/26/22 05:07 Labs: Abnormal Lab Results - Last 24 Hours (Table) 05/26/22 05/26/22 Range/Units 05:07 05:07 Immature Gran # 0.13 H (0.00-0.04) X 10*3/uL Glucose 104 H (74-99) mg/dL Total Bilirubin 1.4 H (0.2-1.3) mg/dL AST 338 H (14-36) U/L ALT 656 H (4-34) U/L Total Protein 5.4 L (6.3-8.2) g/dL Albumin 3.3 L (3.5-5.0) g/dL Assessment and Plan (1) Right upper quadrant pain Narrative/Plan: 46-year-old female who presented to the emergency department after having severe pain in the right upper quadrant and epigastric region in the middle of the night. Patient presented to the emergency department with findings of elevated LFTs, had a CT of the abdomen and pelvis as well as ultrasound of the gallbladder with no significant findings to explain symptoms. No prior history of liver disease, no history of alcohol abuse. No prior history of gallbladder disease or any new medications reported. Unclear etiology of elevated LFTs and abdominal pain, possible choledochal lithiasis however again CT abdomen and pelvis as well as ultrasound shows no evidence of CBD dilation, no gallstones, no concerns for cholecystitis. MRCP with no evidence to suggest ductal stricture, choledocholithiasis or biliary ductal dilation. Patient was found to have gallstones. 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 Recommend outpatient follow-up, as he certainly benign findings. Gen. surgery is following patient closely for cholelithiasis, awaiting their recommendations. Current Visit: Yes Status: Acute Code(s): R10.11 - RIGHT UPPER QUADRANT PAIN SNOMED Code(s): 582231142 (2) Elevated LFTs Narrative/Plan: Patient recently traveled to [place] as well as had been on several antibiotics. Will obtain hepatitis panel. Current Visit: Yes Status: Acute Code(s): R79.89 - OTHER SPECIFIED ABNORMAL FINDINGS OF BLOOD CHEMISTRY SNOMED Code(s): 108018700 Plan: 1. Continue symptomatic and supportive care 2. Continue IV fluids 3. Advance to low-fat diet 4. Antiemetics as needed 5. Protonix 40 mg daily 6. Pain medication as needed 7. Repeat daily CMP 8. Continue with recommendations from general surgery 9. No plans on ERCP 11. Hepatitis panel ordered 12. Outpatient follow-up recommended for papillary mucinous neoplasm reported on MRCP Thank you for this consultation, we will continue to follow. Dr. Kerwin Jennings I agree with the dictator's note, documented as a scribe by Sally Kirk.
--- NOTE | 2022-05-26 13:02 | P.PN ---
Subjective Progress Note Date: 05/26/22 Principal diagnosis: abdominal pain. Denied any pain today. States she only has pain in the right upper side of the abdomen when she presses on the area. She is tolerating clears currently no nausea or vomiting. Patient recently traveled to [place] as well as had been on several antibiotics for ''bronchitis'' including augmentin and doxycycline. Objective - Vital Signs Vital signs: Vital Signs Temp 98.7 F 05/26/22 07:00 Pulse 88 05/26/22 07:00 Resp 16 05/26/22 07:00 BP 111/71 05/26/22 07:00 Pulse Ox 97 05/26/22 07:00 FiO2 Intake & Output 05/25/22 05/26/22 05/26/22 18:59 06:59 18:59 Intake Total 118 Balance 118 Weight 81.647 kg Intake: Oral 118 Other: # Voids 2 1 - Exam Constitutional: No acute distress, conversant, pleasant Eyes:Anicteric sclerae, moist conjunctiva, no lid-lag, PERRLA, ENMT: Oropharynx clear, no erythema, exudates Neck: Supple, FROM, no masses, or JVD, No carotid bruits, No thyromegaly Lungs: Clear to auscultation, Clear to percussion, Normal respiratory effort, no accessory muscle use Cardiovascular: Heart regular in rate and rhythm, No murmurs, gallops, or rubs, No peripheral edema Abdominal: Soft, Nontender, no guarding, rebound or rigidity, Normoactive bowel sounds, No hepatomegaly, No splenomegaly, No palpable mass Skin: Normal temperature, tone, texture, turgor, no induration, No subcutaneous nodules, No rash, lesions, No ulcers Extremities: No digital cyanosis, No clubbing, Pedal pulses intact and symmetrical, Radial pulses intact and symmetrical, No calf tenderness Psychiatric: Alert and oriented to person, place and time, appropriate affect, intact judgement Neuro: Muscles Strength 5/5 in all 4 extremities, Sensation to light touch grossly present throughout, Cranial nerves II-XII grossly intact, no focal sensory deficits - Labs CBC & Chem 7: 05/26/22 05:07 05/26/22 05:07 Labs: Abnormal Lab Results - Last 24 Hours (Table) 05/26/22 05/26/22 Range/Units 05:07 05:07 Immature Gran # 0.13 H (0.00-0.04) X 10*3/uL Glucose 104 H (74-99) mg/dL Total Bilirubin 1.4 H (0.2-1.3) mg/dL AST 338 H (14-36) U/L ALT 656 H (4-34) U/L Total Protein 5.4 L (6.3-8.2) g/dL Albumin 3.3 L (3.5-5.0) g/dL Assessment and Plan Plan: Right upper quadrant pain Transaminitis Abdominal CAT scan and ultrasound negative MRCP showed no evidence to suggest ductal stricture, choledocholithiasis or biliary ductal dilation. Patient was found to have gallstones. 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 Could be secondary to passed stone vs. infectious hepatitis Monitor LFTs and WBC Gen. surgery is following patient closely for cholelithiasis, awaiting their recommendations. Gen surgery advancing diet to regular. PPI Will obtain hepatitis panel r/o hepatitis A arnulfo with recent trip to [place]. History of hypertension BP has been normal here, continue to follow Covid 19 Contact isolation DVT prophylaxis Ambulatory, low risk
--- NOTE | 2022-05-26 13:58 | P.PN ---
Subjective Progress Note Date: 05/26/22 CHIEF COMPLAINT: Right upper quadrant abdominal pain HISTORY OF PRESENT ILLNESS: Patient reporting decrease in her right upper quadrant epigastric abdominal pain. She denies any nausea or vomiting. She t olerated clear liquid diet. MRCP shows no evidence to suggest ductal stricture, choledocholithiasis or biliary ductal dilatation. There is evidence of cholelithiasis. There is a cyst in the pancreatic body. Afebrile. White count has decreased from 16-8.3 for hemoglobin 12.8 platelets 243 total bilirubin is down from 1.7-1.4 AST 503 down to 338 ALT 365 up to 656 alk phos 151 down to 121. Patient has had recent travel to [place] and has been on oral antibiotics for bronchitis. GI service has ordered hepatitis panel Patient seen and examined with Dr. elliott PHYSICAL EXAM: VITAL SIGNS: Reviewed. GENERAL: Well-developed in no acute distress. HEENT: No sclera icterus. Extraocular movements grossly intact. Moist buccal mucosa. Head is atraumatic, normocephalic. ABDOMEN: Soft. Nondistended. right upper quadrant epigastric area tenderness NEUROLOGIC: Alert and oriented. Cranial nerves II through XII grossly intact. ASSESSMENT: 1. Right upper quadrant abdominal pain 2. Cholelithiasis. 3. Elevated LFTs and total bilirubin. No evidence of choledocholithiasis on MRCP. Patient may have passed a stone. 4. Covid positive PLAN: -Start low-fat diet -Repeat LFTs in a.m. -If patient continues to have improvement in her abdominal pain, tolerating diet and liver enzymes improve we'll plan for cholecystectomy outpatient once her Covid symptoms improve Physician Wind Site Manager note has been reviewed by physician. Signing provider agrees with the documented findings, assessment, and plan of care. Objective - Vital Signs Vital signs: Vital Signs Temp 98.4 F 05/26/22 13:45 Pulse 72 05/26/22 13:45 Resp 16 05/26/22 13:45 BP 146/95 05/26/22 13:45 Pulse Ox 98 05/26/22 13:45 FiO2 Intake & Output 05/25/22 05/26/22 05/26/22 18:59 06:59 18:59 Intake Total 118 Balance 118 Weight 81.647 kg Intake: Oral 118 Other: # Voids 2 1 2 - Labs CBC & Chem 7: 05/26/22 05:07 11/03/22 05:07 Labs: Abnormal Lab Results - Last 24 Hours (Table) 05/26/22 05/26/22 Range/Units 05:07 05:07 Immature Gran # 0.13 H (0.00-0.04) X 10*3/uL Glucose 104 H (74-99) mg/dL Total Bilirubin 1.4 H (0.2-1.3) mg/dL AST 338 H (14-36) U/L ALT 656 H (4-34) U/L Total Protein 5.4 L (6.3-8.2) g/dL Albumin 3.3 L (3.5-5.0) g/dL
[2022-05-26 16:23] LABS: Hepatitis A Antibody IgM Nonreactive (Nonreactive); Hepatitis B Core IgM Nonreactive (Nonreactive); Hepatitis B Surface Antigen Nonreactive (Nonreactive); Hepatitis C IgG Antibody Nonreactive (Nonreactive)
[2022-05-26] MEDS: ALBUTEROL HFA INHALER INHALATION PRN (20:04)
[2022-05-27] MEDS: PIPERACILLIN-TAZOBACTAM 3.375 GM in SODIUM CHLORIDE 0.9% 100 ML IVPB SCH (03:55)
[2022-05-27] MEDS: ALBUTEROL HFA INHALER INHALATION PRN (08:42)
[2022-05-27 09:17] LABS: African American GFR (CKD) 78.2 (60.0-200.0); Albumin 3.5 g/dL (3.8-4.9); Albumin/Globulin Ratio 1.84 (1.60-3.17); Anion Gap 8.9 mmol/L (10.00-18.00); BUN/Creat Ratio 12.2 Ratio (12.00-20.00); Blood Urea Nitrogen 12.2 mg/dL (9.0-27.0); Calcium 9.1 mg/dL (8.7-10.3); Carbon Dioxide 26.1 mmol/L (20.0-27.5); Globulin 1.9 g/dL (1.6-3.3); Non-African American GFR(CKD) 67.5 (60.0-200.0); Potassium 4.4 mmol/L (3.5-5.5); Total Bilirubin 0.9 mg/dL (0.30-1.20); Total Protein 5.4 g/dL (6.2-8.2)
[2022-05-27 09:45] VITALS: BP 118/79; PULSE 78; RESP 18; TEMP 98.6
[2022-05-27] MEDS: PANTOPRAZOLE 40 MG/10 ML VIAL IVP SCH (09:47)
--- NOTE | 2022-05-27 10:27 | P.DS ---
Providers Date of admission: 05/25/22 08:24 Expected date of discharge: 05/27/22 Attending physician: Janet Holly MD Consults: 05/25/22 08:22 Consult Physician Urgent Consulting Provider: Florence Jennings Consult Reason/Comments: concern for choledocholithiasis, eval for mrcp Do you want consulting provider notified?: Yes 05/25/22 13:56 Consult Physician Routine Consulting Provider: Jaems Osborn Consult Reason/Comments: acute cholecystitis, elevated liver enzymes Do you want consulting provider notified?: Already Contacted Primary care physician: [facility] Course: 46-year-old white female who was recently diagnosed with covid a few days back, presented to the emergency department with complaints of epigastric and right upper quadrant pain. Patient states her pain was a 10 out of 10 awoke her up out of sleep at 1 AM. States last night she had chicken Parmesan for dinner with no problems initially. Pain also radiates to the right chest and right shoulder. She states she had associated nausea and vomiting. She denies any previous similar symptoms in the past, still has her gallbladder. Denies history of any liver disease In the ER her work up revealed, AST 503, ALT 365, Alp 151, Trop negative. WBC 70015, UA with no pyuria but positive for RBCs. She had a CT of the abdomen and pelvis reporting normal appendix. Nonobstructing renal calculi. No acute abnormality of the abdomen and pelvis. Sigmoid diverticulosis. She also underwent ultrasound of the gallbladder that showed no gallstones or ultrasound evidence of acute cholecystitis. Nonobstructing mid pole right renal calculus redemonstrated. Patient was subsequently admitted, she was seen by both GI and general surgery services. She continued to have coughing and some shortness of breath due to recent covid. Albuterol as needed was used for symptoms. In addition she was treated with Zosyn. She had an MRCP done that showed possible papillary neoplasm, repeat MRI should be done in one year. I communicated that to the nurse to make the patient is aware. The abdominal pain improved gradually throughout admission. Initially she was kept on clear liquid diet that was advanced gradually. She tolerated regular diet, day of discharge. Her LFTs trended down. She was recently in [place] and infectious hepatitis was ruled out. Hepatitis panel came back negative. Patient was instructed to follow up with general surgery in the office regarding cholelithiasis to see if she needs cholecystectomy. Patient was seen and examined face to face on the day of discharge 05/27 Patient Condition at Discharge: Stable Plan - Discharge Summary Discharge Rx Participant: No New Discharge Prescriptions: New Albuterol Inhaler [Ventolin Hfa Inhaler] 2 puff INHALATION RT-QID PRN 30 Days #1 each PRN Reason: Shortness Of Breath Or Wheezing Continue L.acidoph,Paracasei, B.lactis [Probiotic] 1 cap PO DAILY Zinc Gluconate [Zinc] 50 mg PO DAILY Vitamin D3(Unknown) 1 tab PO DAILY Discharge Medication List L.acidoph,Paracasei, B.lactis [Probiotic] 1 cap PO DAILY 05/25/22 [History] Vitamin D3(Unknown) 1 tab PO DAILY 05/25/22 [History] Zinc Gluconate [Zinc] 50 mg PO DAILY 05/25/22 [History] Albuterol Inhaler [Ventolin Hfa Inhaler] 2 puff INHALATION RT-QID PRN 30 Days #1 each 05/27/22 [Rx] Follow up Appointment(s)/Referral(s): Shelley Guzman III, MD [Primary Care Provider] - 1-2 days
--- NOTE | 2022-05-27 11:22 | P.PN ---
Subjective Progress Note Date: 05/27/22 CHIEF COMPLAINT: Right upper quadrant abdominal pain HISTORY OF PRESENT ILLNESS: Patient continues to feel better. She has mild tenderness in the right upper quadrant epigastric area. Her LFTs have trended downwards. Hepatitis panel was negative. She is tolerating low-fat diet. Afebrile. Total bilirubin has normalized at 0.9 AST is down from 338-99 ALT 656 down to 440 alk phos normal at 118 Patient seen and examined with Dr. elliott PHYSICAL EXAM: VITAL SIGNS: Reviewed. GENERAL: Well-developed in no acute distress. HEENT: No sclera icterus. Extraocular movements grossly intact. Moist buccal mucosa. Head is atraumatic, normocephalic. ABDOMEN: Soft. Nondistended. right upper quadrant epigastric area tenderness NEUROLOGIC: Alert and oriented. Cranial nerves II through XII grossly intact. ASSESSMENT: 1. Right upper quadrant and epigastric abdominal pain improved 2. Cholelithiasis. 3. Elevated LFTs and total bilirubin. No evidence of choledocholithiasis on MRCP. Patient may have passed a stone. 4. Covid positive PLAN: -Patient can be discharged from surgical standpoint -Recommend repeat LFTs on Monday with outpatient follow-up in office on Monday with Dr. elliott -Continue a low-fat diet -We'll plan for cholecystectomy outpatient once Covid symptoms improved Physician Rv Mechanic note has been reviewed by physician. Signing provider agrees with the documented findings, assessment, and plan of care. Objective - Vital Signs Vital signs: Vital Signs Temp 98.6 F 05/27/22 09:00 Pulse 78 05/27/22 09:00 Resp 18 05/27/22 09:00 BP 118/79 05/27/22 09:00 Pulse Ox 99 05/27/22 09:00 FiO2 Intake & Output 05/26/22 05/27/22 05/27/22 18:59 06:59 18:59 Intake Total 736 Balance 736 Intake: Oral 736 Other: # Voids 2 2 - Labs CBC & Chem 7: 05/26/22 05:07 05/27/22 05:48 Labs: Abnormal Lab Results - Last 24 Hours (Table) 05/27/22 Range/Units 05:48 Anion Gap 8.90 L (10.00-18.00) mmol/L AST 99 H (13-35) U/L ALT 440 H (8-44) U/L Total Protein 5.4 L (6.2-8.2) g/dL Albumin 3.5 L (3.8-4.9) g/dL
--- NOTE | 2022-05-27 11:37 | P.PN ---
Subjective Progress Note Date: 05/27/22 Principal diagnosis: Elevated LFTs, right upper quadrant pain On is a pleasant 46-year-old white female who presented to the emergency department with complaints of epigastric and right upper quadrant pain. Patient states her pain was a 10 out of 10 awoke her up out of sleep at 1 AM. States last night she had chicken Parmesan for dinner with no problems initially. She states that she woke up pain was severe in the right upper quadrant of her abdomen radiating to the epigastric region and into her back. She states she had associated nausea and vomiting. She denies any previous similar symptoms in the past. Denies any previous history of gallbladder disease. Denies history of any liver disease, underlying elevation of LFTs and no prior history of alcohol abuse. She denies any new medications. She was noted on admission to have elevated LFTs, she had a CT of the abdomen and pelvis reporting normal appendix. Nonobstructing renal calculi. No acute abnormality of the abdomen and pelvis. Sigmoid diverticulosis. She also underwent ultrasound of the gallbladder that showed no gallstones or ultrasound evidence of acute cholecystitis. Nonobstructing mid pole right renal calculus redemonstrated. Gastroenterology was consulted for possible choledocholithiasis. Patient states she still having right upper quadrant and epigastric discomfort however is impr jewels from in the middle of the night. No further nausea and vomiting. She's been afebrile. Denies any fevers or chills. Admitting labs. WBC 16 hemoglobin 15 hematocrit 42 platelet count 304,000 s odium 136 potassium 4.1 BUN 20 creatinine 0.8 total bilirubin 1.7 AST 503 ALT 365 alkaline phosphatase 151 lipase 68 05/26/2022. Patient is seen and examined today as a follow-up for right upper quadrant pain and elevated LFTs. Yesterday she underwent an MRCP that reported no evidence to suggest ductal stricture, choledocholithiasis or biliary ductal dilation. Cholelithiasis was noted. Cystic focus with communication to the main pancreatic duct measuring 4 mm in the pancreatic body. 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 Follow-up MRI/MRCP imaging in one year is recommended. Patient states abdominal pain has improved significantly. No nausea or vomiting. She is tolerating clear liquid diet. Patient does have cough, no fever. She did come back positive for COVID-19 infection. Gen. surgery is following patient closely. Ap parently patient reported that she was recently in [place] and also on several antibiotics including Z-Uriel, doxycycline and possibly Augmentin for bronchitis/upper respiratory infection. Repeat labs today WBC 8.3 hemoglobin 12.8 platelet count 243,000 INR 1.0 total bilirubin 1.4 AST 338 ALT 656 alkaline phosphatase 121. Patient has been afebrile. 05/27/2022: Patient was seen and examined today as a follow-up. She states abdominal pain has resolved. She is tolerating her low-fat diet. She denies any nausea or vomiting, no fevers or chills. She has been afebrile. Continues with cough and congestion. Gen. surgery is recommending outpatient follow-up and cholecystectomy. Objective - Vital Signs Vital signs: Vital Signs Temp 97.9 F 05/27/22 03:32 Pulse 80 05/27/22 03:32 Resp 16 05/27/22 03:32 BP 114/76 05/27/22 03:32 Pulse Ox 96 05/27/22 03:32 FiO2 Intake & Output 05/26/22 05/27/22 05/27/22 18:59 06:59 18:59 Intake Total 736 Balance 736 Intake: Oral 736 Other: # Voids 2 2 - Exam General appearance: The patient is alert, oriented, appears in no acute distress. HET: Head is normocephalic and atraumatic. Conjunctiva pink. Sclera anicteric. Neck: Supple without lymphadenopathy. Abdomen: Soft, nontender, nondistended. No guarding or rigidity. Extremities: Normal skin color and turgor. No pedal edema Skin: No rashes, no jaundice Neurological: No focal deficits. Alert and oriented. - Labs CBC & Chem 7: 05/26/22 05:07 05/27/22 05:48 Labs: Abnormal Lab Results - Last 24 Hours (Table) 05/26/22 Range/Units 05:07 Immature Gran # 0.13 H (0.00-0.04) X 10*3/uL Assessment and Plan (1) Right upper quadrant pain Narrative/Plan: 46-year-old female who presented to the emergency department after having severe pain in the right upper quadrant and epigastric region in the middle of the night. Patient presented to the emergency department with findings of elevated LFTs, had a CT of the abdomen and pelvis as well as ultrasound of the gallbladder with no significant findings to explain symptoms. No prior history of liver disease, no history of alcohol abuse. No prior history of gallbladder disease or any new medications reported. Unclear etiology of elevated LFTs and abdominal pain, possible choledochal lithiasis however again CT abdomen and pelvis as well as ultrasound shows no evidence of CBD dilation, no gallstones, no concerns for cholecystitis. MRCP with no evidence to suggest ductal stricture, choledocholithiasis or biliary ductal dilation. Patient was found to have gallstones. 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 Recommend outpatient follow-up, as he certainly benign findings. Gen. surgery is following patient closely for cholelithiasis, awaiting their recommendations. Current Visit: Yes Status: Acute Code(s): R10.11 - RIGHT UPPER QUADRANT PAIN SNOMED Code(s): 743102467 (2) Elevated LFTs Narrative/Plan: Patient recently traveled to [place] as well as had been on several antibiotics. Will obtain hepatitis panel. Current Visit: Yes Status: Acute Code(s): R79.89 - OTHER SPECIFIED ABNORMAL FINDINGS OF BLOOD CHEMISTRY SNOMED Code(s): 453988549 Plan: 1. Continue symptomatic and supportive care 2. Hepatitis panel ordered, nonreactive 3. No plans for any gastroenterology intervention, no plans for ERCP 4. Continue with recommendations from general surgery 5. Continue with low-fat diet 6. Patient is cleared for discharge from gastroenterology. Thank you for this consultation. We will sign off at this time. Dr. Kerwin Jennings I agree with the dictator's note, documented as a scribe by Sally Kirk.
== END 2022-05-27 11:35 ==
LOC: EC 04:49 → 6NMEDSUR 08:24
PROVIDERS: ADMIT Internal Medicine; ATTEND Internal Medicine
DX: R10.11 Right upper quadrant pain (principal); R10.13 Epigastric pain; U07.1 COVID-19; K80.20 Calculus of gallbladder without cholecystitis without obstruction; R74.8 Abnormal levels of other serum enzymes; R74.01 Elevation of levels of liver transaminase levels; R79.89 Other specified abnormal findings of blood chemistry; R07.9 Chest pain, unspecified; J06.9 Acute upper respiratory infection, unspecified; J45.909 Unspecified asthma, uncomplicated; K57.30 Diverticulosis of large intestine without perforation or abscess without bleeding; N20.0 Calculus of kidney; E66.9 Obesity, unspecified; Z68.35 Body mass index [BMI] 35.0-35.9, adult; Z71.9 Counseling, unspecified; Z82.49 Family history of ischemic heart disease and other diseases of the circulatory system
CPT/HCPCS: 96376 ×3; 96361; 96365; 96366 ×3; 96375; 99285; 36415; 94640 ×2; 93005; 80053 ×3; 80074; 83605; 83690; 83735; 84484; 85025 ×2; 85610; 81001; 76705; 74177; 74181; G0378 ×3; J2543 ×3; J2405; J1885; C9113 ×3; Q9967

== ENCOUNTER 2022-06-10 07:30 | Day surgery (SDC) | payer BC ==
[2022-06-08 10:55] VITALS: BMI 36.1
[~2022-06-10 07:30] MED LIST changes: -DEXAMETHASONE SOD PHOSPHATE 10 MG/ML 1 ML VIAL IV ONE; +DEXAMETHASONE SOD PHOSPHATE 4 MG/ML 1 ML VIAL IV ONE; -LIDOCAINE 1% 20 ML VIAL (10MG/ML) FOR IV START INTRADERMA PRN; -MIDAZOLAM (PF) 2 MG/2 ML VIAL IV PRN; +MIDAZOLAM 2 MG/2 ML VIAL IV PRN; -Pre Op ABX Message 1 EACH MISC MISCELLANE ONE; +SCOPOLAMINE 1 MG/72 HR PATCH TRANSDERM ONE; -SCOPOLAMINE 1.5MG/72HR PATCH TRANSDERM ONE
[2022-06-10] MEDS: LACTATED RINGERS 1,000 ML IV SCH ×2 (07:57→08:20)
[2022-06-10] MEDS ORDERED: DEXAMETHASONE SOD PHOSPHATE 4 MG/ML 1 ML VIAL IVP ONE (08:20)
[2022-06-10] MEDS ORDERED: HEPARIN SODIUM,PORCINE/PF 5,000 UNIT/0.5 ML SYRINGE SQ ONE (08:20)
[2022-06-10] MEDS ORDERED: LIDOCAINE 1%-EPI 1:100,000 20 ML VIAL SQ ONE ×2 (08:26→09:20)
[2022-06-10] MEDS ORDERED: HEPARIN SODIUM,PORCINE 5,000 UNIT/ML 1 ML VIAL SQ ONE (08:44)
--- NOTE | 2022-06-10 08:53 | P.GSHP ---
History of Present Illness H&P Date: 06/10/22 Chief Complaint: Right upper quadrant pain This 46-year-old female who's had complete right quadrant pain. Her recent MRCP shows evidence of cholelithiasis. She presents today for laparoscopic cholecystectomy Past Medical History Past Medical History: Asthma Additional Past Medical History / Comment(s): COVID 05/17/22, inpt with gall bladder attack, migraines, History of Any Multi-Drug Resistant Organisms: None Reported Past Surgical History: Tonsillectomy, Uterine Ablation Additional Past Surgical History / Comment(s): Lacerations with childbirth with vaginal repair, R foot keloid removed, cyst removed pubis. Past Anesthesia/Blood Transfusion Reactions: No Reported Reaction Smoking Status: Never smoker - Past Family History Mother Family Medical History: No Reported History, Vascular Disorder Additional Family Medical History / Comment(s): Mother from a aortic aneurysm rupture at the age of 59yrs. Father History Unknown: Yes Medications and Allergies Home Medications Medication Instructions Recorded Confirmed Type L.acidoph,Paracasei, B.lactis 1 cap PO DAILY 05/25/22 06/10/22 History [Probiotic] Vitamin D3(Unknown) 1 tab PO DAILY 05/25/22 06/10/22 History Zinc Gluconate [Zinc] 50 mg PO DAILY 05/25/22 06/10/22 History Albuterol Inhaler [Ventolin Hfa 2 puff INHALATION RT-QID PRN 30 05/27/22 06/10/22 Rx Inhaler] Days #1 each Allergies Allergy/AdvReac Type Severity Reaction Status Date / Time No Known Allergies Allergy Verified 06/10/22 08:07 Surgical - Exam Vital Signs Temp Pulse Resp BP Pulse Ox 97.1 F L 88 16 138/74 97 06/10/22 08:20 06/10/22 08:20 06/10/22 08:20 06/10/22 08:20 06/10/22 08:20 - General well developed, well nourished, no distress - Eyes PERRL - ENT normal pinna - Neck no masses - Respiratory normal expansion - Cardiovascular Rhythm: regular - Abdomen Abdomen: soft, non tender Assessment and Plan Assessment: Cholecystitis Right quadrant pain We'll perform laparoscopic cholecystectomy.
[2022-06-10] MEDS ORDERED: NEOSTIGMINE 1 MG/ML 10 ML VIAL ONE (08:56)
[2022-06-10] MEDS ORDERED: LIDOCAINE 2% INJ 20 MG/ML (2 ML VIAL) ONE (08:56)
[2022-06-10] MEDS ORDERED: KETOROLAC 15 MG/ML 1 ML VIAL ONE (08:56)
[2022-06-10] MEDS ORDERED: SUCCINYLCHOLINE CHLORIDE 200 MG/10 ML VIAL IV ONE (08:56)
[2022-06-10] MEDS ORDERED: MIDAZOLAM 2 MG/2 ML VIAL ONE (08:56)
[2022-06-10] MEDS ORDERED: ROCURONIUM 10 MG/ML (5 ML VIAL) IV ONE (08:56)
[2022-06-10] MEDS ORDERED: PROPOFOL 10 MG/ML 20 ML VIAL IV ONE (08:56)
[2022-06-10] MEDS ORDERED: fentaNYL (PF) 50 MCG/ML 2 ML AMP ONE (08:56)
[2022-06-10] MEDS ORDERED: GLYCOPYRROLATE 0.2 MG/ML 2 ML VIAL ONE (08:56)
--- NOTE | 2022-06-10 09:37 | P.OP ---
Date of Procedure: 06/10/22 Preoperative Diagnosis: Cholelithiasis Cholecystitis Postoperative Diagnosis: Cholecystitis Cholecystitis Procedure(s) Performed: Laparoscopic cholecystectomy Anesthesia: WILFRED Surgeon: James Osborn Pathology: other (Gallbladder) Condition: stable Disposition: PACU Description of Procedure: The patient was placed on the operating table. The patient received a general endotracheal tube anesthesia. The patients abdomen was prepped and draped in the usual sterile fashion. Through an infraumbilical stab incision, the fascia of the anterior abdominal wall was grasped with a pair of Kochers and then the Veress needle was placed in the peritoneal cavity. Position of the Veress needle was confirmed with positive drop test. The abdomen was then insufflated. After adequate insufflation, the 10 mm trocar was placed in the peritoneal cavity. Following this the laparoscope was placed in the peritoneal cavity. The patient was placed in the head-up, right side up position and then a 5 mm trocar was placed in the right lateral and right subcostal position under direct visualization. A 8 mm trocar was placed in the epigastric position. The gallbladder was grasped in the fundus and infundibulum. Traction on the gallbladder was placed in the lateral and the cephalad positions. The triangle of Calot was visualized.. The cystic duct was bluntly dissected until the union of the cystic duct and common bile duct was seen. A critical view of safety was achieved. The cystic duct was then divided and sealed with the Harmonic scissors. A PDS Endoloop was then placed throughout the cystic duct stump. The cystic artery divided and sealed with the Harmonic scissors. The gallbladder was then removed from the liver bed using Harmonic scissors. The gallbladder was then extracted through the epigastric port site. Operative field was checked for any bleeding spots and Harmonic scissors was used to coagulate the liver bed. The abdomen was irrigated. The trocars were removed. The skin was closed using interrupted 3-0 Vicryl suture. Dermabond dressing were applied. The patient tolerated the procedure well.
[2022-06-10 09:56] VITALS: TEMP 97.3
[2022-06-10 10:02] VITALS: RESP 16
[2022-06-10 11:20] VITALS: BP 142/87; PULSE 85
== END 2022-06-10 11:50 | disposition home or self-care (01) ==
LOC: OR 07:30
PROVIDERS: ATTEND Surgery
DX: K80.10 Calculus of gallbladder with chronic cholecystitis without obstruction (principal); J45.909 Unspecified asthma, uncomplicated; Z86.16 Personal history of COVID-19
CPT/HCPCS: 47562; 81025; J2250; J0330; J1644; J1100; J2710; J0690; J2405; J3010; J1885; J2704; J2001; 88304

== ENCOUNTER → 2022-12-29 | Outpatient (CLI) | payer BC ==
--- NOTE | 2022-12-30 07:20 | MM ---
Reason for Exam: Screening (asymptomatic). Last mammogram was performed 3 year(s) and 5 month(s) ago. Patient History: Menarche at age 12. First Full-Term at age 20. Premenopausal. Patient has history of breast feeding. Hormonal Contraceptives for 7 years from age 17 until age 24. Last menstrual period: 12/05/2022 Risk Values: Loraine 5 year model risk: 0.8%. NCI Lifetime model risk: 8.4%. Prior Study Comparison: 08/05/2019 Bilateral Screening Mammogram, [facility]. Tissue Density: The breast tissue is heterogeneously dense. This may lower the sensitivity of mammography. Findings: Analyzed By CAD. Asymmetry right breast lateral aspect on CC view 11.2 cm from the nipple measuring 29 mm is more prominent on today's exam compared to prior. Located upper aspect posterior middle depth on the MLO view. Left breast: There is no suspicious group of microcalcifications or new suspicious mass in either breast. Overall Assessment: Incomplete: need additional imaging evaluation, BI-RAD 0 Management: Diagnostic Breast Ultrasound of the right breast. Precautionary ultrasound interrogation of the right breast lateral aspect upper quadrant. [facility] will attempt to contact patient to return for supplemental views and ultrasound if indicated. Patient should continue monthly self-breast exams. A clinical breast exam by your physician is recommended on an annual basis. This exam should not preclude additional follow-up of suspicious palpable abnormalities. Note on Loraine scores and lifetime risk: 1. A Loraine score greater than 3% is considered moderate risk. If this is the case, consider specialist referral to assess eligibility for a risk reducing agent. 2. If overall lifetime risk for the development of breast cancer is 20% or higher, the patient may qualify for future screening with alternating mammogram and breast MRI. Electronically signed and approved by: Armando Dimas DO
== END | disposition home or self-care (01) ==
LOC: RADMAMWWP 07:00
PROVIDERS: ATTEND Family Medicine
DX: Z12.31 Encounter for screening mammogram for malignant neoplasm of breast (principal)
CPT/HCPCS: 77063; 77067

== ENCOUNTER → 2023-01-05 | Outpatient (CLI) | payer BC ==
--- NOTE | 2023-01-05 09:56 | USB ---
Reason for Exam: Additional evaluation requested from abnormal screening. Patient History: Menarche at age 12. First Full-Term at age 20. Premenopausal. Patient has history of breast feeding. Hormonal Contraceptives for 7 years from age 17 until age 24. Risk Values: Loraine 5 year model risk: 0.8%. NCI Lifetime model risk: 8.4%. Technique: Method: Targeted. Prior Study Comparison: 08/05/2019 Bilateral Screening Mammogram, [facility]. 12/29/2022 Bilateral MG 3D screening mammo w/cad, [facility]. Findings: The upper outer quadrant of the right breast and the axilla of the right breast were scanned. No solid or cystic masses are identified.. Overall Assessment: Incomplete: need additional imaging evaluation, BI-RAD 0 Management: Diagnostic Mammogram of the right breast. A clinical breast exam by your physician is recommended on an annual basis and results should be correlated with mammographic findings. This exam should not preclude additional follow-up of suspicious palpable abnormalities. Results were given to the patient verbally at the time of exam. Electronically signed and approved by: Dennys Rosario M.D. Radiologis
--- NOTE | 2023-01-05 10:47 | MM ---
Reason for Exam: Additional evaluation requested from abnormal screening. Last screening mammogram was performed less than 1 month ago. Patient History: Menarche at age 12. First Full-Term at age 20. Premenopausal. Patient has history of breast feeding. Hormonal Contraceptives for 7 years from age 17 until age 24. Risk Values: Loraine 5 year model risk: 0.8%. NCI Lifetime model risk: 8.4%. Prior Study Comparison: 12/27/2005 Left Diagnostic Ultrasound, [facility]. 08/05/2019 Bilateral Screening Mammogram, [facility]. 12/29/2022 Bilateral MG 3D screening mammo w/cad, [facility]. Tissue Density: Right: The breast tissue is heterogeneously dense. This may lower the sensitivity of mammography. Findings: Analyzed By CAD. Asymmetric density upper outer right breast is less conspicuous on spot compression imaging. 6 month precautionary follow-up of the right breast is advised. Overall Assessment: Probably benign, BI-RAD 3 Management: Diagnostic Mammogram of the right breast in 6 months. . Results were given to the patient verbally at the time of exam. Patient should continue monthly self-breast exams. A clinical breast exam by your physician is recommended on an annual basis. This exam should not preclude additional follow-up of suspicious palpable abnormalities. Note on Loraine scores and lifetime risk: 1. A Loraine score greater than 3% is considered moderate risk. If this is the case, consider specialist referral to assess eligibility for a risk reducing agent. 2. If overall lifetime risk for the development of breast cancer is 20% or higher, the patient may qualify for future screening with alternating mammogram and breast MRI. Electronically signed and approved by: Dennys Rosario M.D. Radiologis
== END | disposition home or self-care (01) ==
LOC: RADUSWWP 09:32
PROVIDERS: ATTEND Family Medicine
DX: R92.8 Other abnormal and inconclusive findings on diagnostic imaging of breast (principal)
CPT/HCPCS: 77061; 77065

== ENCOUNTER → 2023-07-26 | Outpatient (CLI) | payer BC ==
--- NOTE | 2023-07-26 07:38 | MM ---
Reason for Exam: Additional evaluation requested from abnormal screening. Last screening mammogram was performed 7 month(s) ago. Patient History: Menarche at age 12. First Full-Term at age 20. Premenopausal. Patient has history of breast feeding. Hormonal Contraceptives for 7 years from age 17 until age 24. Paternal half sister had breast cancer under age 50. Risk Values: Loraine 5 year model risk: 0.8%. NCI Lifetime model risk: 8.3%. Tissue Density: Right: There are scattered fibroglandular densities. Findings: Analyzed By CAD. There is focal asymmetry in the upper outer aspect right breast again evident. Underlying mass is not clearly identified. Follow-up ultrasound is recommended. No suspicious groups of microcalcifications, spiculated or lobular masses, architectural distortion or other secondary signs of malignancy are mammographically apparent. Overall Assessment: Incomplete: need additional imaging evaluation, BI-RAD 0 Management: Diagnostic Breast Ultrasound of the right breast. A negative mammogram report should not preclude additional follow up of suspicious palpable abnormalities. Patient should continue monthly self breast exam. A clinical breast exam by your physician is recommended on an annual basis and results should be correlated with mammographic findings. Electronically signed and approved by: Ananda Rivera D.O. Radiologis
--- NOTE | 2023-07-26 07:52 | USB ---
Reason for Exam: Additional evaluation requested from prior study. Patient History: Menarche at age 12. First Full-Term at age 20. Premenopausal. Patient has history of breast feeding. Hormonal Contraceptives for 7 years from age 17 until age 24. Paternal half sister had breast cancer under age 50. Risk Values: Loraine 5 year model risk: 0.8%. NCI Lifetime model risk: 8.3%. Technique: Method: Targeted. Prior Study Comparison: 08/05/2019 Bilateral Screening Mammogram, [facility]. 12/29/2022 Bilateral MG 3D screening mammo w/cad, [facility]. 01/05/2023 Right MG 3D work up w/cad RT, [facility]. 01/05/2023 Right US breast workup limited RT, [facility]. Findings: The upper outer quadrant of the right breast, the axilla of the right breast and the retroareolar of the right breast were scanned. No solid or cystic masses are identified.. Overall Assessment: Negative, BI-RAD 1 Management: Diagnostic Mammogram of both breasts in 6 months. A clinical breast exam by your physician is recommended on an annual basis and results should be correlated with mammographic findings. This exam should not preclude additional follow-up of suspicious palpable abnormalities. Results were given to the patient verbally at the time of exam. Electronically signed and approved by: Ananda Rivera D.O. Radiologis
== END | disposition home or self-care (01) ==
LOC: RADMAMWWP 06:54
PROVIDERS: ATTEND Student in an Organized Health Care Education/Training Program
DX: R92.321 Mammographic fibroglandular density, right breast (principal); R92.333 Mammographic heterogeneous density, bilateral breasts; Z80.3 Family history of malignant neoplasm of breast
CPT/HCPCS: 77061; 77065